=== PATIENT | female | born 1970 | race Caucasian/White ===

== ENCOUNTER 2016-10-06 18:47 | Emergency (ER) | payer OTHER ==
[~2016-10-06 18:47] MED LIST: ADVAIR 250/501 EA INH; ALBUTEROL0.09 MG/A2 INH; ALBUTEROL2.5 MG/0.5 INH; AMBIEN10 MG PO; AMITRIPTYLINE; AMITRIPTYLINE100 MG PO; ATIVAN; ATIVAN0.5 MG PO; AUGMENTIN 875 M1 TAB PO; CELEXA10 MG PO; CELEXA20 MG PO; CHLORZOXAZONE500 MG PO; CIPRO500 MG PO; CLARITIN10 MG PO; CLINDAMYCIN HC300 MG PO; COMBIVENT1 ARO IH; COREG12.5 MG PO; COREG3.125 MG PO; COZAAR100 MG PO; COZAAR25 MG; CYCLOBENZAPRINE10 MG PO; DAYPRO600 M1 PO; DELTASONE10 MG PO; DIOVAN HCT 25 M1 TA5 PO; DITROPAN XL10 MG PO; DOXYCYCLINE HY100 M3 PO; DOXYCYCLINE MO100 MG PO; FLEXERIL10 MG PO; HALDOL; HALDOL PO; HALDOL0.5 M1; HALDOL20 MG PO; HALDOL5 MG PO; HYDROCODONE BIT1 T11 PO; HYZAAR 12.5 MG-1 TAB PO; IMITREX50 MG PO; KEFLEX500 MG PO; LASIX20 MG PO; LEVAQUIN750 MG PO; MACROBID100 M1 PO; MEDROL DOSEPAK4 MG PO; MOTRIN800 MG PO; MUCINEX600 MG PO; NAPROSYN500 MG PO; NEURONTIN600 MG PO; NORFLEX100 MG PO; OMNICEF300 MG PO; PARAFON FORTE500 MG PO; PEN-V500 MG PO; PEPCID20 MG PO; POTASSIUM20 MEQ PO; PREDNISONE10 MG PO; PROAIR HFA0.09 MG/AC INH; RISPERDAL0.5 MG PO; ROBITUSSIN AC 110 ML PO; ROBITUSSIN-AC 160 ML PO; SAPHRIS10 MG SL; SEROQUEL100 MG PO; TEKTURNA150 MG PO; TESSALON PERLE200 MG PO; TORADOL10 MG PO; TRAMADOL HCL50 MG PO; TRAMADOL50 MG PO; VALTREX500 MG PO; VICODIN 5/500 505 MG PO; VOLTAREN50 M1 PO; XANAX XR2 MG PO; XANAX0.25 MG; ZANAX; ZANTAC 300300 MG PO; ZITHROMAX Z PA250 MG PO; ZITHROMAX500 MG PO; ZOFRAN ODT4 MG SL; ZOFRAN4 MG PO
[2016-10-06] MEDS ORDERED: PROAIR HFA8.5 GM INH (19:18)
[2016-10-06] MEDS ORDERED: MEDROL DOSEPAK4 MG PO (19:18)
[2016-10-08] MEDS ORDERED: HYCODAN/HYDROMET5 ML PO (13:02)
[2016-10-08] MEDS ORDERED: ROBITUSSIN DM 105 ML PO (16:04)
== END 2016-10-06 19:48 | disposition left against medical advice (07) ==
LOC: ED 18:47
DX: J44.1 Chronic obstructive pulmonary disease with (acute) exacerbation (principal); F17.210 Nicotine dependence, cigarettes, uncomplicated; F12.10 Cannabis abuse, uncomplicated; Z88.8 Allergy status to other drugs, medicaments and biological substances; Z79.899 Other long term (current) drug therapy

== ENCOUNTER 2017-01-06 07:30 | Emergency (ER) | payer MEDICAID ==
[~2017-01-06] VITALS: Ht 157.4 cm; Wt 81.6 kg
[~2017-01-06 07:30] MED LIST changes: +HYCODAN/HYDROMET5 ML PO; +PROAIR HFA8.5 GM INH; +ROBITUSSIN DM 105 ML PO
[2017-01-06 07:33] VITALS: BP 124/88
== END 2017-01-06 08:19 | disposition home or self-care (01) ==
LOC: ED 07:30
DX: Z01.419 Encounter for gynecological examination (general) (routine) without abnormal findings (principal); R10.2 Pelvic and perineal pain; F17.200 Nicotine dependence, unspecified, uncomplicated; E78.00 Pure hypercholesterolemia, unspecified; G89.29 Other chronic pain; Z98.890 Other specified postprocedural states; Z98.51 Tubal ligation status; Z79.899 Other long term (current) drug therapy; Z88.6 Allergy status to analgesic agent; Z88.8 Allergy status to other drugs, medicaments and biological substances

== ENCOUNTER 2017-01-31 20:21 | Inpatient (IN) | payer MEDICAID ==
[~2017-01-31] VITALS: Ht 157.5 cm; Wt 77.7 kg
[2017-01-31 20:22] VITALS: BP 122/76
[2017-01-31] MEDS ORDERED: PANTOPRAZOLE SO40 MG PO (20:35)
[2017-01-31 20:41] LABS: HEMATOCRIT 42.3 % (37.0-47.0); HEMOGLOBIN 14.7 g/dl (12.0-16.0); MEAN CELL VOLUME 93.8 fl (81.0-99.0); MEAN CORPUSCULAR HGB 32.6 pg (27.0-31.0); MEAN CORPUSCULAR HGB CONC 34.8 g/dl (33.0-37.0); MEAN PLATELET VOLUME 8.9 fl (9.6-12.3); PLATELET COUNT AUTOMATED 351 10*3/uL (130-400); RED BLOOD COUNT 4.51 10*6/uL (4.10-5.10)
[2017-01-31 20:52] LABS: INTERNATIONAL NORM RATIO 0.9 (2.0-3.5)
[2017-01-31 20:57] VITALS: BP 138/78
[2017-01-31 21:00] LABS: ALBUMIN 3.3 gm/dl (3.1-4.5); ALKALINE PHOSPHATASE 100 U/L (45-117); BILIRUBIN, TOTAL 0.2 mg/dl (0.2-1.0); BUN 11 mg/dl (7-24); CARBON DIOXIDE 24 mmol/L (21-32); CHLORIDE 99 mmol/L (98-107); EST GLOM FILT AFRICAN AMERICAN > 60 ml/min; GLUCOSE 117 mg/dL (65-99); MAGNESIUM 1.7 mg/dL (1.5-2.1); SGOT/AST 21 IU/L (3-35); SGPT/ALT 28 U/L (12-78); SODIUM 131 mmol/L (136-145); TOTAL PROTEIN 6.9 gm/dL (6.4-8.2)
[2017-01-31 21:01] LABS: TROPONIN I < 0.015 ng/ml (<0.045)
[2017-01-31 21:05] LABS: BASOPHIL # 0.1 10*3/uL (0-0.1); BASOPHILS 1 % (0-1); EOSINOPHIL # 0.4 10*3/uL (0-0.4); EOSINOPHILS 3 % (1-4); LYMPHOCYTE # 6.2 10*3/uL (1.3-4.4); MONOCYTE # 0.4 10*3/uL (0.1-1.0); NEUTROPHIL # 5.9 10*3/uL (2.3-7.9); NEUTROPHILS 45 % (47-73); PLATELET SUFFICIENCY NORMAL (NORMAL); TOTAL CELLS COUNTED 100 #CELLS
[2017-01-31 22:30] VITALS: BP 135/76
[2017-01-31] MEDS ORDERED: SEROPHENE50 MG PO (23:08)
[2017-01-31] MEDS ORDERED: SEROQUEL50 MG PO (23:09)
[2017-02-01] VITALS: BP 98/57
[2017-02-01 02:31] LABS: BILIRUBIN NEGATIVE (NEGATIVE); BLOOD NEGATIVE (NEGATIVE); CLARITY CLEAR (CLEAR); COLOR YELLOW (YELLOW); GLUCOSE NEGATIVE (NEGATIVE); KETONE NEGATIVE (NEGATIVE); LEUKO ESTERASE NEGATIVE (NEGATIVE); NITRITE NEGATIVE (NEGATIVE); PROTEIN NEGATIVE (NEGATIVE); SPECIFIC GRAVITY <= 1.005 (1.005-1.030); UROBILINOGEN 0.2 E.U./dl (0.2-1.0)
[2017-02-01 02:42] LABS: BACTERIA TRACE; RBC 0-2 rbc/hpf (0-2); URINE REFLEX COMMENT NO (NO); WBC 0-2 wbc/hpf (0-5)
[2017-02-01 06:45] LABS: HEMATOCRIT 43.4 % (37.0-47.0); MEAN CELL VOLUME 93.5 fl (81.0-99.0); MEAN CORPUSCULAR HGB 32.3 pg (27.0-31.0); MEAN CORPUSCULAR HGB CONC 34.6 g/dl (33.0-37.0); MEAN PLATELET VOLUME 8.9 fl (9.6-12.3); PLATELET COUNT AUTOMATED 368 10*3/uL (130-400); RED BLOOD COUNT 4.64 10*6/uL (4.10-5.10); RED CELL DISTRI WIDTH 14.1 % (0-14.5)
[2017-02-01 07:00] LABS: BUN 10 mg/dl (7-24); CARBON DIOXIDE 22 mmol/L (21-32); CHLORIDE 106 mmol/L (98-107); CHOLESTEROL 227 mg/dL (<200); EST GLOM FILT AFRICAN AMERICAN > 60 ml/min; FREE T4 0.92 ng/dl (0.76-1.46); GLUCOSE 96 mg/dL (65-99); HDL CHOLESTEROL 28 mg/dl (40-60); LDL CHOLESTEROL 121 mg/dL (9-159); MAGNESIUM 1.8 mg/dL (1.5-2.1); PHOSPHOROUS 3.9 mg/dL (2.5-4.9); POTASSIUM 4.4 mmol/L (3.5-5.1); SODIUM 134 mmol/L (136-145); TRIGLYCERIDES 389 mg/dl (<150); VLDL CHOLESTEROL 78 mg/dL (6-40)
[2017-02-01 07:13] LABS: HEMOGLOBIN A1c 5.6 % (4.8-5.6)
[2017-02-01 07:15] LABS: VITAMIN D, 25-HYDROXY 29.1 ng/mL (30-100)
[2017-02-01 07:16] LABS: FOLIC ACID 4.02 ng/mL (>5.38)
[2017-02-01 07:18] LABS: ATYPICAL LYMPHS 1 % (0-0); EOSINOPHIL # 0.4 10*3/uL (0-0.4); EOSINOPHILS 4 % (1-4); LYMPHOCYTE # 6.3 10*3/uL (1.3-4.4); MONOCYTE # 0.7 10*3/uL (0.1-1.0); NEUTROPHIL # 3.6 10*3/uL (2.3-7.9); NEUTROPHILS 33 % (47-73); PLATELET SUFFICIENCY NORMAL (NORMAL); TOTAL CELLS COUNTED 100 #CELLS
[2017-02-01 08:00] VITALS: BP 129/77
[2017-02-01] MEDS ORDERED: LATU40TA PO (10:07)
[2017-02-01] MEDS ORDERED: COZAAR100 MG PO (10:07)
[2017-02-01] MEDS ORDERED: DAILY VALUE1 EACH PO (10:07)
[2017-02-01] MEDS ORDERED: ZANAFLEX2 M1 PO (10:09)
[2017-02-01 16:00] VITALS: BP 127/80
[2017-02-01] MEDS ORDERED: ZITHROMAX TRI-500 M1 PO (16:58)
[2017-02-01] MEDS ORDERED: DUONEB 3 MG/3 ML3 M1 INH (16:58)
[2017-02-01] MEDS ORDERED: MUCINEX ER600 MG PO (16:58)
[2017-02-01] MEDS ORDERED: NATURE'S BLEND F1 MG PO (17:44)
[2017-02-01] MEDS ORDERED: D-1000 185 MG-11 TAB PO (17:44)
[2017-02-01] MEDS ORDERED: PRAVACHOL40 MG PO (19:15)
== END 2017-02-01 18:15 | disposition home or self-care (01) | DRG 202 ==
LOC: ED 20:21 → EDHOLD 21:28 → 5E 21:28
PROVIDERS: Emergency Medicine; Internal Medicine
PROC: 4A02XM4 Measurement of Cardiac Total Activity, External Approach (ICD-10-PCS; principal; 2017-02-01)
PROC: 3E073KZ Introduction of Other Diagnostic Substance into Coronary Artery, Percutaneous Approach (ICD-10-PCS; 2017-02-01)
DX: J20.9 Acute bronchitis, unspecified (principal); E87.1 Hypo-osmolality and hyponatremia; I10 Essential (primary) hypertension; R07.82 Intercostal pain; F32.9 Major depressive disorder, single episode, unspecified; Z88.8 Allergy status to other drugs, medicaments and biological substances; Z51.5 Encounter for palliative care; J45.909 Unspecified asthma, uncomplicated; G89.29 Other chronic pain; F41.9 Anxiety disorder, unspecified; D72.829 Elevated white blood cell count, unspecified; M25.512 Pain in left shoulder; M25.511 Pain in right shoulder; M54.5 Low back pain; E55.9 Vitamin D deficiency, unspecified; E78.00 Pure hypercholesterolemia, unspecified; E78.1 Pure hyperglyceridemia; Z66 Do not resuscitate; F17.210 Nicotine dependence, cigarettes, uncomplicated; D52.9 Folate deficiency anemia, unspecified

== ENCOUNTER 2017-06-21 16:15 | Emergency (ER) | payer OTHER ==
[~2017-06-21] VITALS: Ht 157.4 cm; Wt 78.9 kg
[~2017-06-21 16:15] MED LIST changes: +D-1000 185 MG-11 TAB PO; +DAILY VALUE1 EACH PO; +DUONEB 3 MG/3 ML3 M1 INH; +LATU40TA PO; +MUCINEX ER600 MG PO; +NATURE'S BLEND F1 MG PO; +PANTOPRAZOLE SO40 MG PO; +PRAVACHOL40 MG PO; +SEROPHENE50 MG PO; +SEROQUEL50 MG PO; +ZANAFLEX2 M1 PO; +ZITHROMAX TRI-500 M1 PO
[2017-06-21 16:22] VITALS: BP 139/83
[2017-06-21] MEDS ORDERED: VIBRAMYCIN100 MG PO (16:42)
== END 2017-06-21 16:51 | disposition home or self-care (01) ==
LOC: ED 16:15
DX: J45.901 Unspecified asthma with (acute) exacerbation (principal); F17.200 Nicotine dependence, unspecified, uncomplicated; Z98.51 Tubal ligation status; Z98.890 Other specified postprocedural states; Z79.899 Other long term (current) drug therapy; Z88.8 Allergy status to other drugs, medicaments and biological substances

== ENCOUNTER 2017-06-22 19:44 | Inpatient (IN) | payer OTHER ==
[~2017-06-22] VITALS: Ht 157.4 cm; Wt 78.9 kg
[~2017-06-22 19:44] MED LIST changes: +VIBRAMYCIN100 MG PO
[2017-06-22 19:53] VITALS: BP 159/81
[2017-06-22 20:26] LABS: HEMATOCRIT 37.6 % (37.0-47.0); HEMOGLOBIN 13.1 g/dl (12.0-16.0); MEAN CELL VOLUME 95.2 fl (81.0-99.0); MEAN CORPUSCULAR HGB 33.2 pg (27.0-31.0); MEAN CORPUSCULAR HGB CONC 34.8 g/dl (33.0-37.0); MEAN PLATELET VOLUME 8.7 fl (9.6-12.3); PLATELET COUNT AUTOMATED 344 10*3/uL (130-400); RED BLOOD COUNT 3.95 10*6/uL (4.10-5.10); RED CELL DISTRI WIDTH 13.8 % (0-14.5)
[2017-06-22 20:41] LABS: ALBUMIN 3.4 gm/dl (3.1-4.5); ALKALINE PHOSPHATASE 119 U/L (45-117); BUN 10 mg/dl (7-24); CHLORIDE 98 mmol/L (98-107); CREATININE 1.02 mg/dL (0.55-1.02); POTASSIUM 3.8 mmol/L (3.5-5.1); SGOT/AST 51 IU/L (3-35); SGPT/ALT 68 U/L (12-78); SODIUM 131 mmol/L (136-145); TOTAL PROTEIN 6.9 gm/dL (6.4-8.2)
[2017-06-22 20:46] LABS: TOTAL CELLS COUNTED 100 #CELLS
[2017-06-22 20:47] LABS: PLATELET SUFFICIENCY NORMAL (NORMAL); POLYCHROMASIA SLIGHT
[2017-06-22 22:31] VITALS: BP 140/87
[2017-06-22 23:00] VITALS: BP 145/90
--- NOTE | 2017-06-22 23:00 | NUR ---
A 47yr femaile admitted to [facility], under the services of RUBENS Mayen DO with a diagnosis of bronchitis with angioedema. Chief complaint is swelling of face after two doses of Doxycycline. Patient arrived via stretcher from ER. Monitor applied. Initial assessment completed. Vital signs taken and recorded. Orders entered electronically by Dr Quigley. See assessment for past medical history, medications and allergies. Patient and/or family oriented to unit. [facility] visitation policy reviewed. Clothing/patient valuable form completed. HIEU SORENSEN L
--- NOTE | 2017-06-22 23:26 | NUR ---
DR JENKINS NOTIFIED OF CRITICAL VALUE LACTIC ACID 2.7 WHICH IS TRENDING DOWN.
[2017-06-23] VITALS: BP 142/86
--- NOTE | 2017-06-23 00:20 | NUR ---
FLUID BOLUS INFUSING WELL. RESTING IN BED WATCHING TV. FACE REMAINS FLUSHED. DENIES ANY SWELLING OF TONGUE OR LIPS. PULSE OX 96% ON RA. RESPIRATIONS EASY.
--- NOTE | 2017-06-23 01:46 | NUR ---
0035 MEDICATED WITH NORCO PO FOR C/O'S CHEST DISCOMFORT. WILL MONITOR. [address] JENKINS NOTIFIED. EARLIER PAIN MED EFFECTIVE, RESTING IN BED WITH EYES CLOSED. APPEARS TO BE SLEEPING.
--- NOTE | 2017-06-23 03:51 | NUR ---
MEDS REVIEWED WITH PT. MED REC UPDATED. UNABLE TO CALL HERSSHANTANU FARRIS DUE TO IT BEING AFTER HOURS.
[2017-06-23 04:00] VITALS: BP 103/48
--- NOTE | 2017-06-23 04:07 | NUR ---
RESTING IN BED WITH EYES CLOSED. APPEARS TO BE SLEEPING.
[2017-06-23 05:51] LABS: BASO % 0.1 % (0.0-1.0); HEMATOCRIT 36.7 % (37.0-47.0); HEMOGLOBIN 12.8 g/dl (12.0-16.0); LYMPH # 2.2 10*3/uL (1.3-4.4); MEAN CELL VOLUME 96.6 fl (81.0-99.0); MEAN CORPUSCULAR HGB 33.7 pg (27.0-31.0); MEAN CORPUSCULAR HGB CONC 34.9 g/dl (33.0-37.0); MEAN PLATELET VOLUME 8.9 fl (9.6-12.3); MONO # 0.5 10*3/uL (0.1-1.0); NEUT # 19.5 10*3/uL (2.3-7.9); NEUT % 86.7 % (47.0-73.0); PLATELET COUNT AUTOMATED 332 10*3/uL (130-400); RED CELL DISTRI WIDTH 14.1 % (0-14.5); WHITE BLOOD COUNT 22.4 10*3/uL (4.8-10.8)
[2017-06-23 06:08] LABS: ALBUMIN 3.1 gm/dl (3.1-4.5); ALKALINE PHOSPHATASE 104 U/L (45-117); BUN 9 mg/dl (7-24); CHLORIDE 107 mmol/L (98-107); CHOLESTEROL 149 mg/dL (<200); CREATININE 0.97 mg/dL (0.55-1.02); FREE T4 0.78 ng/dl (0.76-1.46); HDL CHOLESTEROL 45 mg/dl (40-60); LDL CHOLESTEROL 69 mg/dL (9-159); PHOSPHOROUS 2.6 mg/dL (2.5-4.9); SGOT/AST 57 IU/L (3-35); SGPT/ALT 75 U/L (12-78); SODIUM 136 mmol/L (136-145); TOTAL PROTEIN 6.4 gm/dL (6.4-8.2); TRIGLYCERIDES 175 mg/dl (<150); VLDL CHOLESTEROL 35 mg/dL (6-40)
[2017-06-23 06:12] LABS: THYROID STIM HORMONE (HS) 0.481 uIU/ml (0.358-4.75)
--- NOTE | 2017-06-23 06:15 | NUR ---
SLEPT WELL THIS SHIFT. REMAINS WITHOUT C/O'S. IV FLUIDS CONT. NO DISTRESS NOTED. CONDITION GUARDED.
[2017-06-23 06:20] LABS: POTASSIUM 4.9 mmol/L (3.5-5.1)
[2017-06-23 06:27] LABS: ACT PARTIAL THROMBO TIME 22.4 SECONDS (20.8-31.5)
--- NOTE | 2017-06-23 07:06 | NUR ---
0635 NORCO PO FOR C/O'S CHEST DISCOMFORT. EFFECTIVE.
--- NOTE | 2017-06-23 07:53 | NUR ---
DR FRANCIS IN TO SEE PT. ORDERED FOR FLU AND PNEUMONIA VACCINES TO BE GIVEN ON DISCHARGE.
[2017-06-23 08:00] VITALS: BP 133/75
--- NOTE | 2017-06-23 08:43 | NUR ---
PT RESTING. RESP EASY. PT STATES NORCO EFFECTIVE FOR EARLIER CHEST PAIN.
--- NOTE | 2017-06-23 09:45 | NUR ---
PT STATES SHE IS SIGNING OUT AMA DUE TO A FAMILY EMERGENCY.
--- NOTE | 2017-06-23 09:55 | NUR ---
Patient signed out AMA. Patient encouraged to stay and advised of possible consequences of premature discharge. Dr. Carballo and metal furniture assembly supervisor notified. Patient instructed what to do regarding care post-departure from the hospital; emergency phone numbers provided. A cab was called for pt and then pt ambulated out of the unit to meet the cab.. DOMINICK SCHMITZ
== END 2017-06-23 09:55 | disposition left against medical advice (07) | DRG 871 ==
LOC: ED 19:44 → EDHOLD 21:58 → ICCU 22:07
PROVIDERS: Emergency Medicine Emergency Medical Services; Hospitalist; ADMIT Internal Medicine
DX: A41.9 Sepsis, unspecified organism (principal); J18.9 Pneumonia, unspecified organism; E87.2 Acidosis; T78.3XXA Angioneurotic edema, initial encounter; R65.20 Severe sepsis without septic shock; F17.200 Nicotine dependence, unspecified, uncomplicated; F32.9 Major depressive disorder, single episode, unspecified; F41.9 Anxiety disorder, unspecified; J45.909 Unspecified asthma, uncomplicated; G89.29 Other chronic pain; I10 Essential (primary) hypertension; J20.9 Acute bronchitis, unspecified; E55.9 Vitamin D deficiency, unspecified; E53.8 Deficiency of other specified B group vitamins; Z53.21 Procedure and treatment not carried out due to patient leaving prior to being seen by health care provider; Z88.8 Allergy status to other drugs, medicaments and biological substances; Z79.899 Other long term (current) drug therapy; Z98.891 History of uterine scar from previous surgery; Z98.51 Tubal ligation status; Z83.3 Family history of diabetes mellitus; Z82.49 Family history of ischemic heart disease and other diseases of the circulatory system; Z88.1 Allergy status to other antibiotic agents; Z71.6 Tobacco abuse counseling

== ENCOUNTER 2017-06-26 15:22 | Emergency (ER) | payer OTHER ==
[~2017-06-26] VITALS: Wt 78.9 kg
[2017-06-26 15:28] VITALS: BP 148/80
== END 2017-06-26 15:48 | disposition left against medical advice (07) ==
LOC: ED 15:22
DX: R06.00 Dyspnea, unspecified (principal); F17.210 Nicotine dependence, cigarettes, uncomplicated; F10.10 Alcohol abuse, uncomplicated; Z79.899 Other long term (current) drug therapy; Z88.8 Allergy status to other drugs, medicaments and biological substances; Z98.51 Tubal ligation status

== ENCOUNTER 2017-07-14 18:55 | Emergency (ER) | payer OTHER ==
[~2017-07-14] VITALS: Ht 157.4 cm; Wt 78.9 kg
[2017-07-14 19:30] LABS: HEMATOCRIT 39.8 % (37.0-47.0); HEMOGLOBIN 13.8 g/dl (12.0-16.0); MEAN CELL VOLUME 94.5 fl (81.0-99.0); MEAN CORPUSCULAR HGB 32.8 pg (27.0-31.0); MEAN CORPUSCULAR HGB CONC 34.7 g/dl (33.0-37.0); MEAN PLATELET VOLUME 8.9 fl (9.6-12.3); PLATELET COUNT AUTOMATED 356 10*3/uL (130-400); RED BLOOD COUNT 4.21 10*6/uL (4.10-5.10); RED CELL DISTRI WIDTH 13.8 % (0-14.5); WHITE BLOOD COUNT 13.3 10*3/uL (4.8-10.8)
[2017-07-14 19:40] LABS: ACT PARTIAL THROMBO TIME 25.6 SECONDS (20.8-31.5)
[2017-07-14 19:41] VITALS: BP 138/87
[2017-07-14 19:49] LABS: ATYPICAL LYMPHS 2 % (0-0); BASOPHILS 1 % (0-1); TOTAL CELLS COUNTED 100 #CELLS
[2017-07-14 19:50] LABS: PLATELET SUFFICIENCY NORMAL (NORMAL)
[2017-07-14 19:52] LABS: ALBUMIN 3.4 gm/dl (3.1-4.5); BUN 7 mg/dl (7-24); CHLORIDE 98 mmol/L (98-107); CREATININE 1.02 mg/dL (0.55-1.02); POTASSIUM 3.6 mmol/L (3.5-5.1); SGOT/AST 30 IU/L (3-35); SGPT/ALT 34 U/L (12-78); SODIUM 131 mmol/L (136-145); TOTAL PROTEIN 7.3 gm/dL (6.4-8.2)
[2017-07-14 19:54] LABS: ALKALINE PHOSPHATASE 131 U/L (45-117)
[2017-07-14 19:55] LABS: BETA-HCG, QUANT < 1.0 mIU/mL (1-3); TROPONIN I < 0.015 ng/ml (<0.045)
[2017-07-14] MEDS ORDERED: PREDNISONE50 MG PO (20:10)
[2017-07-14] MEDS ORDERED: LEVAQUIN750 M1 PO (20:10)
== END 2017-07-14 20:18 | disposition home or self-care (01) ==
LOC: ED 18:55
PROVIDERS: Student in an Organized Health Care Education/Training Program
DX: J44.1 Chronic obstructive pulmonary disease with (acute) exacerbation (principal); J45.901 Unspecified asthma with (acute) exacerbation; G89.29 Other chronic pain; I10 Essential (primary) hypertension; F32.9 Major depressive disorder, single episode, unspecified; E78.00 Pure hypercholesterolemia, unspecified; F17.200 Nicotine dependence, unspecified, uncomplicated; F10.10 Alcohol abuse, uncomplicated; Z88.8 Allergy status to other drugs, medicaments and biological substances; Z79.899 Other long term (current) drug therapy

== ENCOUNTER 2017-08-04 20:27 | Inpatient (IN) | payer OTHER ==
[~2017-08-04] VITALS: Ht 157.4 cm; Wt 84.4 kg
--- NOTE | ~2017-08-04 | PR ---
[place], [place] PROGRESS NOTE NAME: ESTEFANIA CHONG UNIT #: [id number] ROOM: 403 DOCTOR: YUSUF KAY DO BIRTHDATE: [birth year] DOS: 08/08/2017 SUBJECTIVE: The patient was seen and examined at bedside. The patient was sitting upright in bed in no acute distress. The patient reports that her breathing is improved and that she has no new complaints at this time, continues to have some mild productive cough with some wheezing. However, she does feel that she is stable and ready for discharge. OBJECTIVE: VITAL SIGNS: Temperature 98.4, pulse is 78, respirations 20, blood pressure 153/78, pulse ox is 94% on 2 liters nasal cannula. LABS: No labs were drawn. Micro: One of the bronch washings is positive for heavy yeast. Blood cultures remain negative. Flu swab remains negative. PHYSICAL EXAMINATION: GENERAL APPEARANCE: Alert, awake and oriented x 3, no acute distress. HEENT: Eyes are clear. Nares are patent. Mucous membranes are moist. NECK: Supple, nontender. CHEST: Mild expiratory wheezing. No rales or rhonchi. CARDIOVASCULAR: Regular rate and rhythm, no murmurs, gallops or rubs. ABDOMEN: Soft, nontender with positive bowel signs. EXTREMITIES: Clear of edema, erythema, cyanosis and clubbing. ASSESSMENT: 1. Yeast infection of the upper airway. 2. Acute exacerbation of chronic obstructive pulmonary disease with bronchial asthma. 3. Acute respiratory failure. TREATMENT PLAN: The patient is medically cleared by pulmonary standpoint to be discharged today. Continue with Diflucan, to continue with the steroid taper, antibiotics and an albuterol inhaler as needed for wheezes. The patient can follow up with Dr. Francis outpatient as needed. YUSUF KAY DO [place], [place] PROGRESS NOTE NAME: ESTEFANIA CHONG UNIT #: [id number] ROOM: 403 DOCTOR: YUSUF KAY DO BIRTHDATE: [birth year] RALPH FRANCIS MD CM:JOHN [phone] YUSUF KAY DO 08/08/172200 interface
--- NOTE | ~2017-08-04 | CON ---
[place], [place] REPORT OF CONSULTATION NAME: ESTEFANIA CHONG [facility] #: [id number] UNIT #: [id number] ROOM: 403 DOCTOR: RALPH SCHAFER MD BIRTHDATE: [birth year] DOS: 08/06/2017 PULMONARY CONSULTATION, EVALUATION, AND MANAGEMENT CONSULTATION REQUESTED BY: Hospitalist service. REASON FOR CONSULTATION: To assess the patient for current ongoing acute severe respiratory symptom, exacerbation of COPD, or bronchial asthma. HISTORY OF PRESENT ILLNESS: This is a 47-year-old white female who has been admitted to the hospitalist service on 08/04/2017. She presented to the hospital as she developed symptoms of progressive increased shortness of breath with chest congestion. She has been noted ill for about a month. The patient has been taking her prescription medication and noted no improvement in the respiratory symptoms. The patient was complaining of symptoms of chest pain in the rib with excessive cough. She had not been able to expectorate any sputum. The cough has been noted continuous. The patient denies any symptoms of hemoptysis, but noted significant chest tightness. REVIEW OF SYSTEMS: CONSTITUTIONAL SYMPTOMS: Fatigue and tiredness reported. Denies symptoms of fever or chills. EYES: Denies any burning, redness, or tenderness. EARS, NOSE, AND THROAT SYMPTOMS: No sore throat, hoarseness, or otalgia. Denies any earache or discharge. CARDIOVASCULAR: Denies anginal pain, edema, or pain of the lower extremities. GASTROINTESTINAL: Denies dysphagia, nausea, vomiting, diarrhea, abdominal pain, hematemesis, melena, hematochezia, dysphagia, or abnormal weight loss history. GENITOURINARY: Denies any flank pain, suprapubic pain, hematuria, urinary incontinence, or hesitancy. SKIN: Denies any lesions or rashes or ulcers. MUSCULOSKELETAL: No acute joint pain or deformities. CENTRAL NERVOUS SYSTEM: Denies dizziness, headache, diplopia, or syncopal episodes. Remaining systems of the patient were reviewed and they were noted negative. PAST MEDICAL HISTORY: The patient was known with: 1. History of depression. 2. Chronic pain. 3. Essential hypertension. 4. History of nicotine dependence. 5. Paranoid schizophrenia. 6. Past history of pneumonia was also reported. 7. COPD. SOCIAL HISTORY: The patient stated that she is single, has four children. Tobacco use noted since a teenager. The patient continued to smoke 1 pack of cigarettes per day. Denies history of alcohol use or any illicit drugs use. [place], [place] REPORT OF CONSULTATION [id number] #: [id number] ROOM: 403 DOCTOR: RALPH SCHAFER MD BIRTHDATE: [birth year] PAST SURGICAL HISTORY: Noted for: 1. Endometrial ablation treatment. 2. . FAMILY HISTORY: Both parents have been . Father from suicide and mother was murdered. HOME MEDICATIONS: Reported as use of Xanax, Tessalon Perles, Coreg, cetirizine, doxepin, gabapentin, Haldol, loratadine, losartan, Latuda, Singulair, omeprazole, Protonix, pravastatin, and trazodone. DRUG ALLERGIES: REPORTED ALLERGY TO: 1. DOXYCYCLINE. 2. NORVASC. PHYSICAL EXAMINATION: GENERAL: This is a 47-year-old female patient who has been currently resting, sitting on the bed, without any distress. Height of 5 feet 2 inches, weight of 186 pounds, BMI 34. VITAL SIGNS: Normal temperature noted since admission, respiratory rate ranged between 18-20, heart rate of 78-81, blood pressure 114/55-109/63. HEENT: Piercing of the lips and the tongue was noted with metal piercing device. Head was atraumatic. Eyes nonicterus. Decreased posterior pharyngeal space, high tongue base, crowding of soft tissue structures. NECK: Supple. Oral mucosa moist. CARDIOVASCULAR: S1, S2 audible. LUNGS: Showed diffuse reduction in the breath sounds with severe expiratory wheezing in the lungs bilaterally. ABDOMEN: Noted with moderate obesity. Bowel sounds present. EXTREMITIES: Noted without any edema, clubbing, or cyanosis. SKIN: Visible skin, no lesions or rashes. MUSCULOSKELETAL: No deformities. CENTRAL NERVOUS SYSTEM: Intact for the patient. There were no gross focal deficits. Cranial nerves 2-12 intact. LABORATORY DATA: CBC of the patient on admission, 08/04/2017, WBC count 13.8, hemoglobin, hematocrit, and platelet count normal. Lactic acid 2.9 on admission, on followup was 2.5. The CMP of the patient on 08/04/2017, BUN normal, creatinine 1.09. sodium 122, chloride of 89, carbon dioxide 20. CBC of the patient that was done this morning, WBC count elevated at 26.3, hemoglobin 11.8, hematocrit 35.1, platelet count was normal. The renal function panel, BUN normal, creatinine was normal, sodium 136, potassium was normal. The blood culture from 08/04/2017 showed no bacterial growth. RADIOLOGY DATA: The review of the radiology data for the patient was noted without any acute pulmonary filtration, that was noted on today's chest x-ray or from admission one-view of 08/04/2017 that was reviewed. IMPRESSION: 1. The patient who has been currently admitted to the hospital with noted [place], [place] REPORT OF CONSULTATION NAME: ESTEFANIA CHONG UNIT #: [id number] ROOM: 403 DOCTOR: RALPH SCHAFER MD BIRTHDATE: [birth year] persistent acute severe cough with ongoing acute exacerbation of chronic obstructive pulmonary disease, inability to expectorate sputum. 2. Leukocytosis, most likely related to the steroid use as well. 3. History of chronic long-term nicotine dependence as well. 4. The patient with chronic obesity as well. 5. Multiple psychiatric medication use for the patient with hyponatremia on admission, possibility of volume depletion versus syndrome of inappropriate antidiuretic hormone has been considered as well. However, the sodium level has been corrected to normal at this time in the last 2 days. 6. Chronic heavy nicotine dependence. PLAN OF MANAGEMENT: Therapeutic bronchoscopy was assessed and planned to be done tomorrow. Risks and benefits of the procedure have been discussed. Continuation of the current home medication, which has been ordered for the patient including continuing Solu-Medrol at the current dose and DuoNeb every 4 hours. Continue current antibiotic. No changes need to be made. Monitor leukocytosis. Reduction of corticosteroids based on the progression and reduction of the respiratory symptoms. Additional treatment changes will be made based on further assessment. RALPH FRANCIS MD CM:CONSTR:REPORT OF CONSULTATION 1402 08/07/17 0046 interface
--- NOTE | ~2017-08-04 | PROC NOTE ---
[place], [place] PROCEDURE NOTE NAME: ESTEFANIA CHONG UNIT #: [id number] ROOM: 403 DOCTOR: PENNY NG MD,RALPH BIRTHDATE: [birth year] DOS: 08/07/2017 PREOPERATIVE DIAGNOSES: The patient was noted with severe cough, chronic and currently ____ nonproductive with wheezing. This is a therapeutic bronchoscopy. POSTOPERATIVE DIAGNOSES: Severe impaction with mucus plugs, clear endobronchial tree, bilaterally finding of acute tracheobronchitis. There were no endobronchial lesions. PROCEDURE DESCRIPTION: Informed consent obtained for the patient. The patient was brought to the OR and placed in supine position. Conscious sedation administered by Anesthesia Department. After achieving proper sedation, airway was introduced into the mouth. Bronchoscope advanced to the airway into the laryngeal area. Epiglottis and vocal cords were seen. Bronchoscope was advanced to vocal cord and tracheal lumen. In the tracheal lumen, the patient was noted with moderate amount of very thick mucus secretion with small secretion mixture suctioned at lani level. Right upper, right middle, right lower, left upper, lingular lobe bronchi were all examined. They were impacted with very thick plugs of the mucus. All secretions suctioned off and cleared with normal saline wash, sent for culture. Procedure well tolerated by the patient without difficulty. Postoperative finding will be discussed with the patient once the patient recovers from the effects of acute sedation. RALPH FRANCIS MD CM:PROCNOTE:PROCEDURE NOTE [phone] RALPH NG MD
--- NOTE | ~2017-08-04 | PR ---
[place], [place] PROGRESS NOTE NAME: ESTEFANIA CHONG UNIT #: [id number] ROOM: 403 DOCTOR: YUSUF KAY DO BIRTHDATE: [birth year] DOS: 08/07/2017 SUBJECTIVE: The patient is seen and examined prior to bronchoscopy. The patient is in no acute distress. Continues to have shortness of breath, wheezing and sputum production. No other complaints at this time. OBJECTIVE: VITAL SIGNS: Temperature 97.5, pulse is 60, respirations 20, blood pressure 161/96, pulse ox is 91% on room air. LABS: White count 22.7, hemoglobin 11.5, hematocrit 34.7, platelets count 307. Chemistries were normal except for a mild elevation of glucose 134, calcium 8.8. T bilirubin 0.01. AST and ALT were normal. Alk phos was normal. Albumin 3.0. Blood cultures remain negative. Flu swab was negative. Chest x-ray from yesterday morning shows normal AP chest. GENERAL APPEARANCE: The patient is alert, awake and oriented x 3, no acute distress. HEENT: Eyes are clear. No injection. Nares are patent. Mucous membranes are moist. NECK: Supple, nontender. CARDIOVASCULAR: Regular rate and rhythm, no murmurs, gallops or rubs. PULMONARY: Expiratory wheezing with mild crackles appreciated bilaterally. ABDOMEN: Soft, nontender with positive bowel sounds. EXTREMITIES: Lower extremities, no edema, cyanosis, clubbing or erythema. NEUROLOGIC: Negative for focal deficits. ASSESSMENT: 1. Chronic obstructive pulmonary disease exacerbation with acute severe cough. 2. Leukocytosis. 3. Nicotine dependence. 4. Obesity. 5. Hyponatremia. PLAN: The patient to be bronch this morning. We will await bronch washings for cultures and sensitivities. Continue with Mucinex, Singulair, DuoNebs, azithromycin, Rocephin and Solu-Medrol 40 t.i.d. We will continue to follow the patient. YUSUF KAY DO [place], [place] PROGRESS NOTE NAME: ESTEFANIA CHONG UNIT #: [id number] ROOM: 403 DOCTOR: YUSUF KAY DO BIRTHDATE: [birth year] RALPH FRANCIS MD CM:JOHN [phone] YUSUF KAY DO 08/07/17 105 interface
--- NOTE | ~2017-08-04 | PR ---
[place], [place] PROGRESS NOTE NAME: [id number] UNIT #: [id number] ROOM: 403 DOCTOR: PENNY NG MD,RALPH BIRTHDATE: [birth year] DOS: 08/08/2017 The patient was independently seen and examined in [id number] encounter, history was confirmed and labs were reviewed. The assessment was personally completed. Any changes in the medical management were personally made and recommended for today's visit. The note done by the medical lab tech instructor was approved. She had bronchoscopy done yesterday with significant reduction in respiratory symptoms. The coughing and shortness breath symptoms have been improving. She was also noted with significant oral thrush with bronchoscopy yesterday and started on Diflucan 100 mg p.o. daily. PHYSICAL EXAMINATION: VITAL SIGNS: Reviewed and noted essentially normal except systolic pressure mildly elevated at 153. The pulse oxygen saturation was noted as 94% on 2-liter nasal cannula. LUNGS: Noted with general reduction of the breath sounds with scattered occasional expiratory wheezing. ABDOMEN: Soft and obese. LABORATORY DATA: The culture of the bronchial washing was noted with heavy growth of yeast, preliminary. Final culture results are pending. IMPRESSION: The patient with acute exacerbation of chronic obstructive pulmonary disease, acute tracheobronchitis. Reduction of respiratory symptoms has been noted. Oral thrush was also noted and chronic obesity as well and other medical illnesses with nicotine dependence. PLAN OF TREATMENT: The patient will be recommended for potential discharge. Tapering dose of prednisone, oral antibiotics, use of appropriate medication for COPD in the form of inhalers. Outpatient followup if agreed by the patient. Abstinence from tobacco use. RALPH FRANCIS MD CM:PNTRANS [phone] RALPH NG MD 08/08/171850 interface
--- NOTE | ~2017-08-04 | PR ---
[place], [place] PROGRESS NOTE NAME: ESTEFANIA CHONG UNIT #: [id number] ROOM: 403 DOCTOR: YUSUF KAY DO BIRTHDATE: [birth year] DOS: 08/09/2017 SUBJECTIVE: The patient was seen and examined at bedside. The patient was asleep, in no acute distress at the time of interview. The patient was awakened easily, reports that she continues to have some mild shortness of breath with ambulation, however, feels that she has stabilized and feels like she is ready to go home today. The patient was reassessed for home oxygen both yesterday and today and patient qualified for home oxygen and that is getting arranged for her at the time of discharge. No other complaints as of today. OBJECTIVE: VITAL SIGNS: Temperature 97.6, pulse is 51, respirations 20, blood pressure 196/91, pulse ox 97% of 1.5 liters nasal cannula. LABORATORY DATA: Chemistries: Broncho washings were positive for heavy yeast. IMPRESSION: 1. Acute on chronic obstructive pulmonary disease exacerbation. 2. Upper respiratory yeast infection. 3. Acute on chronic respiratory failure. TREATMENT PLAN: The patient is medically stable from a pulmonary standpoint for discharge home. The patient will require 2 liters nasal cannula at all times for the foreseeable future due to her chronic respiratory failure with hypoxia. Recommend the patient continue with Diflucan, steroid taper and Levaquin with albuterol p.r.n. for shortness of breath upon discharge and follow up with Dr. Francis as outpatient in a couple of weeks. YUSUF KAY, DO RALPH FRANCIS MD CM:PNADONIS [phone] YUSUF KAY DO 08/10/17 1452 interface
--- NOTE | ~2017-08-04 | PR ---
[place], [place] PROGRESS NOTE NAME: ESTEFANIA CHONG UNIT #: [id number] ROOM: 403 DOCTOR: RALPH SCHAFER MD BIRTHDATE: [birth year] DOS: 08/07/2017 SUBJECTIVE: The patient was independently seen and examined in [id number] encounter today. The history was confirmed. Physical examination performed. All the labs were reviewed. The patient's assessment, management personally done for the patient today's visit, done by the new medical imaging specialist, was approved. She continued to have similar symptoms of severe cough. The patient had wheezing without any changes from yesterday. Denies any symptoms of hemoptysis. The patient denies symptoms of edema or pain of the lower extremities. Denies any headache or diplopia. OBJECTIVE: VITAL SIGNS: Review of the vital sign was done shows essentially normal vital signs. The pulse oxygen saturation was recorded as 97% to 90% on room air. LUNGS: Noted with decreased breath sounds in the lungs bilaterally with expiratory wheezing. There were no crackles. ABDOMEN: Soft and obese. EXTREMITIES: Without any edema. Chronic obesity. SKIN: No lesion or rash. MUSCULOSKELETAL: No deformities. CENTRAL NERVOUS SYSTEM: Intact. LABORATORY DATA: CMP this morning, , albumin 3.0. Remaining CMP was normal. The CBC this morning: WBC count still elevated 22.7, hemoglobin 11.5, hematocrit 34.7, platelet count was normal. IMPRESSION: Persistent respiratory symptoms, which has been noted at this time with severe cough, wheezing, acute exacerbation of chronic obstructive pulmonary disease/bronchial asthma. The chest x-ray yesterday was noted without any acute pulmonary infiltration. The patient will be undergoing therapeutic bronchoscopy. Any modification treatment with the patient if necessary will be done after that. All other plan of treatment, the patient had previously outlined yesterday, will be continued without any changes. [place], [place] PROGRESS NOTE NAME: ESTEFANIA CHONG UNIT #: [id number] ROOM: 403 DOCTOR: RALPH SCHAFER MD BIRTHDATE: [birth year] RALPH FRANCIS MD CM:PNTRANS [phone] RALPH NG MD 08/08/17 1107 interface
--- NOTE | ~2017-08-04 | PR ---
[place], [place] PROGRESS NOTE NAME: [id number] UN[facility] #: [id number] ROOM: 403 DOCTOR: PENNY NG MD,RALPH BIRTHDATE: [birth year] DOS: 08/09/2017 SUBJECTIVE: The patient has been seen and examined in [id number] encounter, history was confirmed. The physical examination was performed. All the available labs were reviewed. Assessment and management of the patient was personally done as well. The note done by the medical imaging technologist was approved. The patient has been showing progressive resolution and improvement in respiratory symptom. The shortness breath, cough, wheezing all resolving. She will be discharged home today. Oxygen assessment was completed. She was noted with hypoxia. PLAN OF TREATMENT: The patient with ambulation, requires 2 liters nasal cannula oxygen supplementation to improve the hypoxia. The oxygen supplementation will be arranged. Abstinence from tobacco use was encouraged. She will be getting oral Diflucan for oral thrush management and tapering dose of prednisone as well as antibiotics and other inhalers for the medical management of chronic obstructive pulmonary disease. RALPH FRANCIS MD CM:PNADONIS [phone] RAPLH NG MD 08/09/172150 interface
[2017-08-04 20:27] VITALS: BP 128/74
[~2017-08-04 20:27] MED LIST changes: +LEVAQUIN750 M1 PO; +PREDNISONE50 MG PO
[2017-08-04 21:01] LABS: BASO # 0.1 10*3/uL (0.0-0.1); BASO % 0.6 % (0.0-1.0); EOS # 0.1 10*3/uL (0.0-0.4); EOS % 0.9 % (1.0-4.0); HEMATOCRIT 37.8 % (37.0-47.0); HEMOGLOBIN 13.1 g/dl (12.0-16.0); LYMPH # 2.1 10*3/uL (1.3-4.4); LYMPH % 14.8 % (27.0-41.0); MEAN CELL VOLUME 95.7 fl (81.0-99.0); MEAN CORPUSCULAR HGB 33.2 pg (27.0-31.0); MEAN CORPUSCULAR HGB CONC 34.7 g/dl (33.0-37.0); MEAN PLATELET VOLUME 8.8 fl (9.6-12.3); MONO # 0.6 10*3/uL (0.1-1.0); MONO % 4.6 % (3.0-9.0); NEUT # 10.9 10*3/uL (2.3-7.9); NEUT % 78.5 % (47.0-73.0); PLATELET COUNT AUTOMATED 272 10*3/uL (130-400); RED BLOOD COUNT 3.95 10*6/uL (4.10-5.10); RED CELL DISTRI WIDTH 13.3 % (0-14.5); WHITE BLOOD COUNT 13.8 10*3/uL (4.8-10.8)
[2017-08-04 21:23] LABS: ALBUMIN 3.4 gm/dl (3.1-4.5); ALKALINE PHOSPHATASE 128 U/L (45-117); BUN 7 mg/dl (7-24); CHLORIDE 89 mmol/L (98-107); CREATININE 1.09 mg/dL (0.55-1.02); POTASSIUM 3.9 mmol/L (3.5-5.1); SGOT/AST 28 IU/L (3-35); SGPT/ALT 42 U/L (12-78); SODIUM 122 mmol/L (136-145); TOTAL PROTEIN 6.7 gm/dL (6.4-8.2)
[2017-08-04 21:24] LABS: TROPONIN I < 0.015 ng/ml (<0.045)
[2017-08-04 21:30] VITALS: BP 120/78
[2017-08-04 22:40] VITALS: BP 148/93
[2017-08-04] MEDS ORDERED: HALDOL PO (22:47)
[2017-08-04] MEDS ORDERED: CETIRIZINE10 MG PO (22:48)
[2017-08-04] MEDS ORDERED: SINEQUAN25 MG PO (22:53)
[2017-08-04] MEDS ORDERED: CARVEDILOL25 MG PO (22:54)
[2017-08-04] MEDS ORDERED: SINGULAIR10 M1 PO (22:54)
[2017-08-04] MEDS ORDERED: NEURONTIN300 MG PO (22:55)
[2017-08-04] MEDS ORDERED: TESSALON PERLE100 MG PO (22:56)
[2017-08-04] MEDS ORDERED: OMEPRAZOLE20 M2 PO (22:57)
[2017-08-04] MEDS ORDERED: LORADAMED10 MG PO (22:58)
[2017-08-04] MEDS ORDERED: LATU80TA PO (22:58)
[2017-08-04] MEDS ORDERED: PANTOPRAZOLE SO40 MG PO (22:58)
[2017-08-04 23:14] LABS: BILIRUBIN NEGATIVE (NEGATIVE); BLOOD NEGATIVE (NEGATIVE); CLARITY CLEAR (CLEAR); COLOR YELLOW (YELLOW); GLUCOSE NEGATIVE (NEGATIVE); KETONE NEGATIVE (NEGATIVE); LEUKO ESTERASE NEGATIVE (NEGATIVE); NITRITE NEGATIVE (NEGATIVE); PH 5.5 (5.0-9.0); SPECIFIC GRAVITY <= 1.005 (1.005-1.030); UROBILINOGEN 0.2 E.U./dl (0.2-1.0)
[2017-08-04 23:31] LABS: BACTERIA TRACE; WBC 0-2 wbc/hpf (0-5)
[2017-08-05] VITALS (7 sets, daily range): BP systolic 109–145; BP diastolic 62–93
[2017-08-05 04:52] LABS: HEMATOCRIT 36.9 % (37.0-47.0); HEMOGLOBIN 12.9 g/dl (12.0-16.0); MEAN CELL VOLUME 96.6 fl (81.0-99.0); MEAN CORPUSCULAR HGB 33.8 pg (27.0-31.0); PLATELET COUNT AUTOMATED 295 10*3/uL (130-400); RED BLOOD COUNT 3.82 10*6/uL (4.10-5.10); RED CELL DISTRI WIDTH 13.4 % (0-14.5); WHITE BLOOD COUNT 13.4 10*3/uL (4.8-10.8)
[2017-08-05 05:03] LABS: ACT PARTIAL THROMBO TIME 30.7 SECONDS (20.8-31.5)
[2017-08-05 05:04] LABS: CREATININE 1.2 mg/dL (0.55-1.02); POTASSIUM 4.3 mmol/L (3.5-5.1)
[2017-08-05 05:14] LABS: PLATELET SUFFICIENCY NORMAL (NORMAL); TOTAL CELLS COUNTED 100 #CELLS
[2017-08-05 05:15] LABS: BURR CELLS FEW; THYROID STIM HORMONE (HS) 0.982 uIU/ml (0.358-4.75)
[2017-08-06] VITALS: BP 114/55
[2017-08-06 07:26] LABS: HEMATOCRIT 35.1 % (37.0-47.0); HEMOGLOBIN 11.8 g/dl (12.0-16.0); MEAN CELL VOLUME 97.8 fl (81.0-99.0); MEAN CORPUSCULAR HGB 32.9 pg (27.0-31.0); MEAN CORPUSCULAR HGB CONC 33.6 g/dl (33.0-37.0); MEAN PLATELET VOLUME 9.5 fl (9.6-12.3); PLATELET COUNT AUTOMATED 316 10*3/uL (130-400); RED BLOOD COUNT 3.59 10*6/uL (4.10-5.10); RED CELL DISTRI WIDTH 14.3 % (0-14.5); WHITE BLOOD COUNT 26.3 10*3/uL (4.8-10.8)
[2017-08-06 07:52] LABS: ALBUMIN 2.9 gm/dl (3.1-4.5); BUN 8 mg/dl (7-24); CHLORIDE 105 mmol/L (98-107); CREATININE 1.09 mg/dL (0.55-1.02); PHOSPHOROUS 3.5 mg/dL (2.5-4.9); POTASSIUM 4.3 mmol/L (3.5-5.1); SODIUM 136 mmol/L (136-145)
[2017-08-06 08:00] VITALS: BP 116/56
[2017-08-06 08:18] LABS: PLATELET SUFFICIENCY NORMAL (NORMAL); TOTAL CELLS COUNTED 100 #CELLS
[2017-08-06 12:00] VITALS: BP 124/67
[2017-08-06 16:00] VITALS: BP 121/53
[2017-08-06 20:00] VITALS: BP 122/52
[2017-08-07] VITALS (9 sets, daily range): BP systolic 132–162; BP diastolic 69–96
[2017-08-07 07:40] LABS: HEMATOCRIT 34.7 % (37.0-47.0); HEMOGLOBIN 11.5 g/dl (12.0-16.0); MEAN CELL VOLUME 99.1 fl (81.0-99.0); MEAN CORPUSCULAR HGB 32.9 pg (27.0-31.0); MEAN CORPUSCULAR HGB CONC 33.1 g/dl (33.0-37.0); MEAN PLATELET VOLUME 9.5 fl (9.6-12.3); PLATELET COUNT AUTOMATED 307 10*3/uL (130-400); RED CELL DISTRI WIDTH 14.4 % (0-14.5); WHITE BLOOD COUNT 22.7 10*3/uL (4.8-10.8)
[2017-08-07 07:53] LABS: ALKALINE PHOSPHATASE 107 U/L (45-117); BUN 10 mg/dl (7-24); CHLORIDE 105 mmol/L (98-107); CREATININE 1.02 mg/dL (0.55-1.02); POTASSIUM 4.3 mmol/L (3.5-5.1); SGOT/AST 23 IU/L (3-35); SGPT/ALT 43 U/L (12-78); SODIUM 139 mmol/L (136-145); TOTAL PROTEIN 6.5 gm/dL (6.4-8.2)
[2017-08-07 08:17] LABS: ATYPICAL LYMPHS 1 % (0-0); PLATELET SUFFICIENCY NORMAL (NORMAL); TOTAL CELLS COUNTED 100 #CELLS
[2017-08-08] VITALS: BP 169/88; BP 99/50
[2017-08-08 08:00] VITALS: BP 153/78
[2017-08-08] MEDS ORDERED: FLUCONAZOLE100 MG PO (11:28)
[2017-08-08] MEDS ORDERED: PREDNISONE10 MG PO (11:28)
[2017-08-08] MEDS ORDERED: MUCINEX ER600 MG PO (11:28)
[2017-08-08 12:00] VITALS: BP 169/95
[2017-08-08] MEDS ORDERED: LEVAQUIN500 M2 PO (13:06)
[2017-08-08] MEDS ORDERED: PROVENTIL HFA6.7 GM INH (13:34)
[2017-08-08 14:10] LABS: ACID FAST SMEAR Negative (.); ACID FAST SPEC PROCESSING Concentration (.)
[2017-08-08 16:00] VITALS: BP 157/88
[2017-08-08 20:00] VITALS: BP 156/75
[2017-08-09] VITALS: BP 148/80; BP 179/79
[2017-08-09 01:00] VITALS: BP 148/80
[2017-08-09 08:35] VITALS: BP 186/91
== END 2017-08-09 12:30 | disposition home or self-care (01) | DRG 871 ==
LOC: ED 20:27 → EDHOLD 23:38 → 4E 23:38
PROVIDERS: Internal Medicine; Internal Medicine Critical Care Medicine; Nurse Practitioner; Registered Nurse
PROC: 0BC28ZZ Extirpation of Matter from Carina, Via Natural or Artificial Opening Endoscopic (ICD-10-PCS; principal; 2017-08-07)
PROC: 0BC18ZZ Extirpation of Matter from Trachea, Via Natural or Artificial Opening Endoscopic (ICD-10-PCS; 2017-08-07)
PROC: 0BC98ZZ Extirpation of Matter from Lingula Bronchus, Via Natural or Artificial Opening Endoscopic (ICD-10-PCS; 2017-08-07)
PROC: 0BC48ZZ Extirpation of Matter from Right Upper Lobe Bronchus, Via Natural or Artificial Opening Endoscopic (ICD-10-PCS; 2017-08-07)
PROC: 0BC88ZZ Extirpation of Matter from Left Upper Lobe Bronchus, Via Natural or Artificial Opening Endoscopic (ICD-10-PCS; 2017-08-07)
PROC: 0BC58ZZ Extirpation of Matter from Right Middle Lobe Bronchus, Via Natural or Artificial Opening Endoscopic (ICD-10-PCS; 2017-08-07)
PROC: 0BC68ZZ Extirpation of Matter from Right Lower Lobe Bronchus, Via Natural or Artificial Opening Endoscopic (ICD-10-PCS; 2017-08-07)
DX: A41.9 Sepsis, unspecified organism (principal); J18.9 Pneumonia, unspecified organism; E87.2 Acidosis; J44.0 Chronic obstructive pulmonary disease with (acute) lower respiratory infection; E87.1 Hypo-osmolality and hyponatremia; J45.901 Unspecified asthma with (acute) exacerbation; B37.0 Candidal stomatitis; J44.1 Chronic obstructive pulmonary disease with (acute) exacerbation; F20.0 Paranoid schizophrenia; I10 Essential (primary) hypertension; J20.9 Acute bronchitis, unspecified; E78.00 Pure hypercholesterolemia, unspecified; F17.210 Nicotine dependence, cigarettes, uncomplicated; E66.09 Other obesity due to excess calories; F32.9 Major depressive disorder, single episode, unspecified; E78.1 Pure hyperglyceridemia; E55.9 Vitamin D deficiency, unspecified; Z71.6 Tobacco abuse counseling; Z99.81 Dependence on supplemental oxygen; Z98.51 Tubal ligation status; Z68.34 Body mass index [BMI] 34.0-34.9, adult; Z98.891 History of uterine scar from previous surgery; Z79.899 Other long term (current) drug therapy; Z88.8 Allergy status to other drugs, medicaments and biological substances; Z82.49 Family history of ischemic heart disease and other diseases of the circulatory system; Z83.3 Family history of diabetes mellitus; Z81.8 Family history of other mental and behavioral disorders

== ENCOUNTER → 2017-08-13 | Outpatient (CLI) | payer OTHER ==
[~2017-08-13] MED LIST changes: +CARVEDILOL25 MG PO; +CETIRIZINE10 MG PO; +FLUCONAZOLE100 MG PO; +LATU80TA PO; +LEVAQUIN500 M2 PO; +LORADAMED10 MG PO; +NEURONTIN300 MG PO; +OMEPRAZOLE20 M2 PO; +PROVENTIL HFA6.7 GM INH; +SINEQUAN25 MG PO; +SINGULAIR10 M1 PO; +TESSALON PERLE100 MG PO
== END ==
LOC: RAD 11:36
DX: J06.9 Acute upper respiratory infection, unspecified (principal); I10 Essential (primary) hypertension; J44.9 Chronic obstructive pulmonary disease, unspecified; Z87.891 Personal history of nicotine dependence

== ENCOUNTER 2017-10-15 06:55 | Emergency (ER) | payer OTHER ==
[~2017-10-15] VITALS: Ht 165.1 cm; Wt 78.9 kg
[2017-10-15 07:50] VITALS: BP 122/80
[2017-10-15 07:54] LABS: BASO # 0.1 10*3/uL (0.0-0.1); BASO % 1.1 % (0.0-1.0); EOS # 1.1 10*3/uL (0.0-0.4); EOS % 8.8 % (1.0-4.0); HEMOGLOBIN 13.9 g/dl (12.0-16.0); LYMPH # 3.9 10*3/uL (1.3-4.4); LYMPH % 29.9 % (27.0-41.0); MEAN CELL VOLUME 101.9 fl (81.0-99.0); MEAN CORPUSCULAR HGB 33.7 pg (27.0-31.0); MEAN CORPUSCULAR HGB CONC 33.1 g/dl (33.0-37.0); MEAN PLATELET VOLUME 8.8 fl (9.6-12.3); MONO # 1.1 10*3/uL (0.1-1.0); MONO % 8.2 % (3.0-9.0); NEUT # 6.7 10*3/uL (2.3-7.9); NEUT % 51.6 % (47.0-73.0); PLATELET COUNT AUTOMATED 337 10*3/uL (130-400); RED BLOOD COUNT 4.12 10*6/uL (4.10-5.10); RED CELL DISTRI WIDTH 15.9 % (0-14.5)
[2017-10-15 08:13] LABS: ALBUMIN 2.9 gm/dl (3.1-4.5); ALKALINE PHOSPHATASE 161 U/L (45-117); BUN 6 mg/dl (7-24); CHLORIDE 106 mmol/L (98-107); CREATININE 1.29 mg/dL (0.55-1.02); POTASSIUM 3.9 mmol/L (3.5-5.1); SGOT/AST 33 IU/L (3-35); SGPT/ALT 28 U/L (12-78); SODIUM 138 mmol/L (136-145); TOTAL PROTEIN 7.2 gm/dL (6.4-8.2)
[2017-10-15 08:14] LABS: TROPONIN I < 0.015 ng/ml (<0.045)
[2017-10-15 09:50] LABS: BILIRUBIN NEGATIVE (NEGATIVE); BLOOD NEGATIVE (NEGATIVE); CLARITY SL CLOUDY (CLEAR); COLOR YELLOW (YELLOW); GLUCOSE NEGATIVE (NEGATIVE); KETONE NEGATIVE (NEGATIVE); LEUKO ESTERASE NEGATIVE (NEGATIVE); NITRITE NEGATIVE (NEGATIVE); PH 5.5 (5.0-9.0); SPECIFIC GRAVITY <= 1.005 (1.005-1.030); UROBILINOGEN 0.2 E.U./dl (0.2-1.0)
[2017-10-15 10:12] LABS: BACTERIA 1+; EPITHELIAL CELLS 20-30; WBC 51-100 wbc/hpf (0-5); WHITE BLOOD CELL CAST 15-20
[2017-10-15] MEDS ORDERED: LEVAQUIN250 M1 PO (10:27)
[2017-10-15] MEDS ORDERED: DIFLUCAN150 MG PO (10:27)
[2017-10-15] MEDS ORDERED: Motrin,Rufen800 MG PO (10:29)
== END 2017-10-15 10:35 | disposition home or self-care (01) ==
LOC: ED 06:55
PROVIDERS: Emergency Medicine
DX: S29.012A Strain of muscle and tendon of back wall of thorax, initial encounter (principal); N39.0 Urinary tract infection, site not specified; G89.29 Other chronic pain; E78.00 Pure hypercholesterolemia, unspecified; I10 Essential (primary) hypertension; F17.200 Nicotine dependence, unspecified, uncomplicated; Z98.890 Other specified postprocedural states; Z98.51 Tubal ligation status; Z79.899 Other long term (current) drug therapy; Z88.8 Allergy status to other drugs, medicaments and biological substances; Z88.3 Allergy status to other anti-infective agents; X50.1XXA Overexertion from prolonged static or awkward postures, initial encounter; Y93.89 Activity, other specified; Y92.89 Other specified places as the place of occurrence of the external cause; Y99.9 Unspecified external cause status

== ENCOUNTER 2017-11-25 20:02 | Inpatient (IN) | payer OTHER ==
[~2017-11-25] VITALS: Ht 157.5 cm; Wt 78.9 kg
--- NOTE | ~2017-11-25 | CON ---
[place], [place] REPORT OF CONSULTATION NAME: ESTEFANIA CHONG [facility] #: [id number] UNIT #: [id number] ROOM: 505 DOCTOR: RALPH SCHAFER MD BIRTHDATE: [birth year] DOS: 11/26/2017 PULMONARY CONSULTATION, EVALUATION AND MANAGEMENT CONSULTATION REQUESTED BY: Hospitalist Service. REASON FOR CONSULTATION: Assessment of respiratory symptoms, possibly with pneumonia and others. HISTORY OF PRESENT ILLNESS: This is a 47-year-old white female known to me with history of COPD and other respiratory symptoms, previously treated in 07/2017, presented to the hospital Emergency Room as the patient developed progressive cough for the past several days. The symptoms have been noted progressive worsening in the last few days. The symptoms started approximately a couple of weeks ago. The patient's cough has been noted to be severe, nonproductive at the present time. The shortness of breath was noted with mild exertion and continued wheezing, which is described to be audible. The symptoms were associated with the pain noted in the low portion of the chest as well. Pain is described moderate to severe without radiation, occurs only with a deep cough or body movements. REVIEW OF SYSTEMS: CONSTITUTIONAL: She reported symptoms of fatigue and tiredness with low grade fever. EYES: Denies any burning, discharge or redness, or tenderness. EARS, NOSE, THROAT SYMPTOMS: Denies sore throat, hoarseness, otalgia, postnasal drainage or epistaxis. CARDIOVASCULAR: No angina pain, edema, pain of the lower extremity. GASTROINTESTINAL: Dysphagia, nausea, vomiting, diarrhea, abdominal pain, hematemesis, melena, or hematochezia. GENITOURINARY: No dysuria, suprapubic pain, hematuria. MUSCULOSKELETAL: The patient without any acute joint pain, redness, or tenderness. SKIN: No abnormal lesions or rashes. CENTRAL NERVOUS SYSTEM: No dizziness, headache, diplopia, or syncopal episodes. Remaining systems were reviewed. They were noted all negative. PAST MEDICAL HISTORY: 1. Known with history of chronic obstructive pulmonary disease. 2. Past history of pneumonia. 3. Chronic pain syndrome. 4. History of depression. 5. Essential hypertension. 6. Morbid obese. 7. Paranoid schizophrenia. 8. Nicotine dependence. SOCIAL HISTORY: The patient is single, has 4 children, lives at home. Smoking noted since teenager, pack of cigarettes per day, currently smoking less than [place], [place] REPORT OF CONSULTATION NAME: ESTEFANIA CHONG UNIT #: [id number] ROOM: [facility] DOCTOR: ARLPH SCHAFER MD BIRTHDATE: [birth year] half a pack of cigarettes per day. Denies history of alcohol use, illicit drug use. PAST SURGICAL HISTORY: 1. Endometrial ablation. 2. . 3. Fiberoptic bronchoscopy that was done on 08/07/2017. FAMILY HISTORY: Both parents have been . Father from suicide and mother was killed with a homicide. MEDICATIONS: Currently, the patient on this admission noted use of Solu-Medrol 40 mg b.i.d., simvastatin, Lovenox for DVT prophylaxis, tizanidine p.r.n. use, Tessalon Perles p.r.n. use 100 mg q.8 hours, gabapentin, doxepin, nicotine replacement patches 21 mg, magnesium hydroxide, Rocephin, Zithromax and DuoNeb every 4 hours while awake. DRUG ALLERGIES: 1. ALLERGY TO DOXYCYCLINE, CAUSING ANGIOEDEMA. 2. NORVASC. PHYSICAL EXAMINATION: GENERAL: A 47-year-old female who has been noted to be currently awake and alert, no acute distress. Height of 5 feet 2 inches, weight 174 pounds, BMI 31.8. VITAL SIGNS: The patient recorded normal temperature, respiratory rate 18-20, heart rate 87-101, blood pressure 101/65. The pulse oxygen saturation on room air 95% saturation. HEENT: Head was atraumatic. Eyes nonicterus. Moderate decreased breath sound. Decreased posterior pharyngeal space with high tongue base crowding the soft tissue structures. CARDIOVASCULAR: S1, S2 audible. LUNGS: Noted moderate decreased breath sound, diffuse expiratory wheezing without any crackles. ABDOMEN: Soft, nontender. Bowel sounds present. EXTREMITIES: Chronic obesity without any edema. MUSCULOSKELETAL: Without any acute deformities. SKIN: Visible skin with no lesions or rashes. CENTRAL NERVOUS SYSTEM: Cranial nerves 2-12 intact. No focal deficit. LABORATORY DATA: CBC done 11/25/2017. WBC count 13.2, hemoglobin and hematocrit normal, platelet count was normal. Eosinophils were significantly elevated at 10.6. The lactic acid noted at 2.7. The PT, PTT was noted as normal. CMP of the patient of 57, BUN 3, creatinine was normal. Sodium 131. CBC of the patient this morning, WBC count 11.7, hemoglobin 13.7, hematocrit 42.3, platelet count 324,000. CMP was 58. BUN and creatinine was normal. Troponin for the patient, which was done this morning was noted as normal. Lactic acid 2.7 on admission, 2.0 later on yesterday. Chest x-ray of the patient, 2-view, which was done for this patient was reviewed, shows moderate-sized pleural fluid noted for the patient on the right side for this [place], [place] REPORT OF CONSULTATION NAME: ESTEFANIA CHONG UNIT #: [id number] ROOM: [facility] DOCTOR: DARRELL SCHAFER MDM BIRTHDATE: [birth year] patient with possibility infiltration or compression atelectasis. IMPRESSION: 1. 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 2. Acute chronic nicotine dependence as well. 3. Current pleural fluid, consideration should be also given for possibility of malignancy as well because of the right-sided pleural fluid. 4. The patient with moderate obesity as well. PLAN OF TREATMENT: Continue current antibiotic for the patient's community-acquired infection. Obtain the nasopharyngeal swab with the usual virus including influenza infection. Obtain the sputum for Gram stain and culture. Order the CT scan of the chest for this patient with intravenous contrast for this patient for further assessment for the patient current pleural fluid. Thoracentesis would be done for this patient after that. Other supportive therapy, plan of management and care plan to be given for this patient. After the review of the CT scan of the chest, bronchoscopy would be also considered to be done for this patient as well for further assessment. Usual care, other plan of treatment for this patient to be done for this patient based on the progression of the illnesses. Agree with continued use of the nicotine replacement patches for this patient to overcome any nicotine withdrawal. Supportive care for this patient and treatment and therapies. Further changes in the treatment will be modified based on the progression of the illness. RALPH FRANCIS MD CM:CONSTR:REPORT OF CONSULTATION 1455 11/27/17 1550 interface
--- NOTE | ~2017-11-25 | EKG ---
[place], [place] ELECTROCARDIOGRAM REPORT NAME: ESTEFANIA CHONG UNIT #: [id number] ROOM: [facility] DOCTOR: PENNY NG MD,RALPH BIRTHDATE: [birth year] DOS: 11/25/2017 PROCEDURE: Electrocardiogram. PROCEDURE DATE AND TIME: 11/25/2017 at 09:01 p.m. FINDINGS: The electrocardiogram showed normal sinus rhythm, heart rate of 92 beats per minute. RALPH FRANCIS MD CM:EKGRPT:ELECTROCARDIOGRAM REPORT 00 10 RALPH NG MD
--- NOTE | ~2017-11-25 | PR ---
[place], [place] PROGRESS NOTE NAME: ESTEFANIA CHONG [facility] #: [id number] UNIT #: [id number] ROOM: 505 DOCTOR: PENNY NG MD,RALPH BIRTHDATE: [birth year] DOS: 11/27/2017 SUBJECTIVE: The patient noted comfortable at this time. She noted coughing and wheezing. She denies any symptoms of acute chest pain at this time, denies symptoms headache, nausea, vomiting, diarrhea, abdominal pain. Edema of the lower extremities. She was noted quite anxious. She refused the bronchoscopy that was planned to be done today. She had a CT scan of the chest which was completed yesterday. The patient was personally reviewed, chest CT that was ordered by me. The remaining system review of the patient noted, all negative. OBJECTIVE: VITAL SIGNS: Which has been recorded shows the temperature noted as normal. The respiratory 18, heart rate 95, blood pressure 130/81-120/70. The pulse oxygen saturation of the patient noted on room air 93% saturation at rest. HEENT: Moderate obesity. Head was atraumatic. Eyes nonicterus. NECK: Supple. CARDIOVASCULAR: S1, S2 audible. LUNGS: Decreased breath sounds noted in the right lung. The expiratory wheezing present bilaterally. There were no crackles. ABDOMEN: Soft, nontender, bowel sounds present. EXTREMITIES: The patient noted without any acute edema. SKIN: No lesions or rashes. MUSCULOSKELETAL: The patient without any deformities. LABORATORY DATA: CT of the chest patient does not show evidence of pulmonary embolism. Large right pleural fluid was noted ____ be excluded. Significant compression atelectasis noted in the right lower lobe as well. The left lung was noted clear of any pulmonary infiltration or any nodules. The airway appeared to be clear. IMPRESSION: 1. The patient with ongoing acute exacerbation of chronic obstructive pulmonary disease with possibility of acute pneumonia. Leukocytosis also noted with elevated white cell count 22.1 today. CBC with normal hemoglobin and hematocrit. 2. Differential of the current pleural fluid would be considered possibility of acute pneumonia or malignancy to be excluded as well. 3. The patient with history of nicotine dependence. 4. Acute exacerbation of chronic obstructive pulmonary disease/bronchial asthma. PLAN OF MANAGEMENT: The findings of CT scan were discussed with the patient in detail. She was described the necessity of diagnostic procedure. Thoracentesis to be done. For further evaluation of pleural fluid to pinpoint the exact etiology of the current pleural fluid prior to making any further change in treatment. She agreed for the procedure but later on, came to the nursing staff and signed against medical advice. She did not express to me about signing against medical advice or refusal of the procedure. Nurses informed me about that. The case was also discussed with Dr. Ambrosio who is the attending of this patient for today's management. [place], [place] PROGRESS NOTE NAME: ESTEFANIA CHONG [facility] UNIT #: [id number] ROOM: 505 DOCTOR: RALPH SCHAFER MD BIRTHDATE: [birth year] RALPH FRANCIS MD CM:JOHN [id number] RALPH NG MD 11/27/17 1628 interface
[~2017-11-25 20:02] MED LIST changes: +DIFLUCAN150 MG PO; +LEVAQUIN250 M1 PO; +Motrin,Rufen800 MG PO
[2017-11-25 20:07] VITALS: BP 149/100
[2017-11-25] MEDS ORDERED: AUGMENTIN 875875 MG PO (21:07)
[2017-11-25] MEDS ORDERED: ZITHROMAX250 MG PO (21:07)
[2017-11-25 21:23] LABS: BASO # 0.1 10*3/uL (0.0-0.1); BASO % 1.1 % (0.0-1.0); EOS # 1.4 10*3/uL (0.0-0.4); EOS % 10.6 % (1.0-4.0); HEMATOCRIT 46.8 % (37.0-47.0); HEMOGLOBIN 15.5 g/dl (12.0-16.0); LYMPH # 4.9 10*3/uL (1.3-4.4); LYMPH % 37.3 % (27.0-41.0); MEAN CELL VOLUME 98.5 fl (81.0-99.0); MEAN CORPUSCULAR HGB 32.6 pg (27.0-31.0); MEAN CORPUSCULAR HGB CONC 33.1 g/dl (33.0-37.0); MEAN PLATELET VOLUME 8.5 fl (9.6-12.3); MONO # 0.7 10*3/uL (0.1-1.0); MONO % 5.5 % (3.0-9.0); PLATELET COUNT AUTOMATED 364 10*3/uL (130-400); RED BLOOD COUNT 4.75 10*6/uL (4.10-5.10); RED CELL DISTRI WIDTH 15.6 % (0-14.5); WHITE BLOOD COUNT 13.2 10*3/uL (4.8-10.8)
[2017-11-25 21:33] LABS: ACT PARTIAL THROMBO TIME 25.2 SECONDS (20.8-31.5)
[2017-11-25 21:39] LABS: ALBUMIN 3.2 gm/dl (3.1-4.5); ALKALINE PHOSPHATASE 134 U/L (45-117); BUN 3 mg/dl (7-24); CHLORIDE 98 mmol/L (98-107); CREATININE 0.89 mg/dL (0.55-1.02); POTASSIUM 4.1 mmol/L (3.5-5.1); SGOT/AST 21 IU/L (3-35); SGPT/ALT 25 U/L (12-78); SODIUM 131 mmol/L (136-145); TOTAL PROTEIN 7.2 gm/dL (6.4-8.2)
[2017-11-25 21:41] LABS: TROPONIN I < 0.015 ng/ml (<0.045)
[2017-11-25 22:30] VITALS: BP 132/76
[2017-11-25 23:04] VITALS: BP 117/76
[2017-11-26] VITALS: BP 130/67
[2017-11-26 03:06] LABS: BASO # 0.1 10*3/uL (0.0-0.1); EOS # 1.6 10*3/uL (0.0-0.4); EOS % 13.6 % (1.0-4.0); HEMATOCRIT 42.3 % (37.0-47.0); HEMOGLOBIN 13.7 g/dl (12.0-16.0); LYMPH % 42.7 % (27.0-41.0); MEAN CORPUSCULAR HGB 32.7 pg (27.0-31.0); MEAN CORPUSCULAR HGB CONC 32.4 g/dl (33.0-37.0); MEAN PLATELET VOLUME 8.6 fl (9.6-12.3); MONO # 0.6 10*3/uL (0.1-1.0); MONO % 5.5 % (3.0-9.0); NEUT # 4.3 10*3/uL (2.3-7.9); NEUT % 36.9 % (47.0-73.0); PLATELET COUNT AUTOMATED 324 10*3/uL (130-400); RED BLOOD COUNT 4.19 10*6/uL (4.10-5.10); RED CELL DISTRI WIDTH 15.6 % (0-14.5); WHITE BLOOD COUNT 11.7 10*3/uL (4.8-10.8)
[2017-11-26 03:35] LABS: ALBUMIN 2.8 gm/dl (3.1-4.5); BUN 3 mg/dl (7-24); CHLORIDE 102 mmol/L (98-107); CHOLESTEROL 161 mg/dL (<200); CREATININE 0.93 mg/dL (0.55-1.02); SGOT/AST 19 IU/L (3-35); SGPT/ALT 24 U/L (12-78); SODIUM 137 mmol/L (136-145); TRIGLYCERIDES 250 mg/dl (<150); VLDL CHOLESTEROL 50 mg/dL (6-40)
[2017-11-26 03:41] LABS: ALKALINE PHOSPHATASE 112 U/L (45-117); FREE T4 1.02 ng/dl (0.76-1.46); HDL CHOLESTEROL 23 mg/dl (40-60); LDL CHOLESTEROL 88 mg/dL (9-159)
[2017-11-26 06:51] LABS: VITAMIN D, 25-HYDROXY 21.8 ng/mL (30-100)
[2017-11-26 08:00] VITALS: BP 103/65
[2017-11-26 12:00] VITALS: BP 118/76
[2017-11-26 16:00] VITALS: BP 120/73
[2017-11-26 20:00] VITALS: BP 128/70
[2017-11-26 20:34] LABS: BILIRUBIN NEGATIVE (NEGATIVE); BLOOD NEGATIVE (NEGATIVE); CLARITY CLEAR (CLEAR); COLOR YELLOW (YELLOW); GLUCOSE 1+ (NEGATIVE); KETONE NEGATIVE (NEGATIVE); LEUKO ESTERASE NEGATIVE (NEGATIVE); NITRITE NEGATIVE (NEGATIVE); PH 5.5 (5.0-9.0); SPECIFIC GRAVITY <= 1.005 (1.005-1.030); UROBILINOGEN 0.2 E.U./dl (0.2-1.0)
[2017-11-26 20:50] LABS: BACTERIA TRACE; RBC 0-2 rbc/hpf (0-2); WBC 0-2 wbc/hpf (0-5)
[2017-11-27 00:23] VITALS: BP 120/70
[2017-11-27 07:49] LABS: BASO % 0.1 % (0.0-1.0); HEMATOCRIT 45.5 % (37.0-47.0); HEMOGLOBIN 14.9 g/dl (12.0-16.0); LYMPH # 1.6 10*3/uL (1.3-4.4); LYMPH % 7.4 % (27.0-41.0); MEAN CELL VOLUME 100.2 fl (81.0-99.0); MEAN CORPUSCULAR HGB 32.8 pg (27.0-31.0); MEAN CORPUSCULAR HGB CONC 32.7 g/dl (33.0-37.0); MEAN PLATELET VOLUME 8.7 fl (9.6-12.3); MONO # 0.6 10*3/uL (0.1-1.0); MONO % 2.5 % (3.0-9.0); NEUT # 19.7 10*3/uL (2.3-7.9); NEUT % 89.1 % (47.0-73.0); PLATELET COUNT AUTOMATED 346 10*3/uL (130-400); RED BLOOD COUNT 4.54 10*6/uL (4.10-5.10); RED CELL DISTRI WIDTH 15.8 % (0-14.5); WHITE BLOOD COUNT 22.1 10*3/uL (4.8-10.8)
[2017-11-27 08:00] VITALS: BP 130/81
[2017-11-27 08:00] LABS: BUN 7 mg/dl (7-24); CHLORIDE 102 mmol/L (98-107); CREATININE 1.17 mg/dL (0.55-1.02); POTASSIUM 4.4 mmol/L (3.5-5.1); SODIUM 136 mmol/L (136-145)
== END 2017-11-27 09:30 | disposition left against medical advice (07) | DRG 871 ==
LOC: ED 20:02 → EDHOLD 21:53 → 5E 21:53
PROVIDERS: Internal Medicine; Internal Medicine Hospice and Palliative Medicine; Physician Assistant
DX: A41.9 Sepsis, unspecified organism (principal); J11.08 Influenza due to unidentified influenza virus with specified pneumonia; J90 Pleural effusion, not elsewhere classified; J96.11 Chronic respiratory failure with hypoxia; D72.1 Eosinophilia; E87.2 Acidosis; E44.1 Mild protein-calorie malnutrition; E66.01 Morbid (severe) obesity due to excess calories; E87.1 Hypo-osmolality and hyponatremia; J44.1 Chronic obstructive pulmonary disease with (acute) exacerbation; J44.0 Chronic obstructive pulmonary disease with (acute) lower respiratory infection; F20.0 Paranoid schizophrenia; F31.9 Bipolar disorder, unspecified; F12.10 Cannabis abuse, uncomplicated; R65.20 Severe sepsis without septic shock; R00.0 Tachycardia, unspecified; R74.8 Abnormal levels of other serum enzymes; F41.1 Generalized anxiety disorder; I10 Essential (primary) hypertension; F17.210 Nicotine dependence, cigarettes, uncomplicated; E66.09 Other obesity due to excess calories; E78.00 Pure hypercholesterolemia, unspecified; K21.9 Gastro-esophageal reflux disease without esophagitis; E55.9 Vitamin D deficiency, unspecified; G89.29 Other chronic pain; Z53.21 Procedure and treatment not carried out due to patient leaving prior to being seen by health care provider; Z71.6 Tobacco abuse counseling; Z99.81 Dependence on supplemental oxygen; Z88.1 Allergy status to other antibiotic agents; Z88.8 Allergy status to other drugs, medicaments and biological substances; Z98.51 Tubal ligation status; Z82.49 Family history of ischemic heart disease and other diseases of the circulatory system; Z83.3 Family history of diabetes mellitus; Z79.899 Other long term (current) drug therapy; Z81.8 Family history of other mental and behavioral disorders; Z68.32 Body mass index [BMI] 32.0-32.9, adult

== ENCOUNTER 2017-11-27 12:46 | Inpatient (IN) | payer OTHER ==
[~2017-11-27] VITALS: Ht 157 cm; Wt 79.0 kg
--- NOTE | ~2017-11-27 | PR ---
[place], [place] PROGRESS NOTE NAME: ESTEFANIA CHONG [facility] #: [id number] UNIT #: [id number] ROOM: 408 DOCTOR: PENNY NG MD,RALPH BIRTHDATE: [birth year] DOS: 11/29/2017 PULMONARY PROGRESS NOTE SUBJECTIVE: The patient has not been noted any ongoing acute complaints at this time. She has not been noted in any acute distress at this time. The cough has been noted mild without sputum expectoration. Shortness of breath has decreased after the thoracentesis, which was done personally at the bedside of this patient. She has not been reported symptoms of abdominal pain. Denies symptoms of nausea, vomiting, diarrhea, hematemesis, or melena. Denies edema or pain of the lower extremities. Remaining systems were reviewed. They were noted all negative. OBJECTIVE: VITAL SIGNS: For the patient recorded as normal temperature, respiratory rate 18, heart rate of 45-81. The blood pressure 193/97-152/86. Pulse oxygen saturation was recorded on room air was 96% saturation. HEENT: Head was atraumatic. Eyes: No icterus. NECK: Supple. It was obese. CARDIOVASCULAR SYSTEM: S1, S2 is audible. LUNGS: Noted without any wheezing or crackles. ABDOMEN: Soft, obese, nontender. EXTREMITIES: Without any acute edema. LABORATORY DATA: Review of the pleural fluid analysis yesterday pH noted 7.19, which was decreased, albumin of 2.5. The cholesterol of 153. Triglyceride noted as 64. Glucose was noted as 94, total protein 4.2 with an ALT of 763 markedly elevated. The differentials of the floor were noted as WBC is 4812, 78% eosinophils. Cytology of the pleural fluid was pending. IMPRESSION: 1. The patient has been currently noted with eosinophilic predominant exudative pleural fluid. Differential of acute bacterial pneumonia, eosinophilic pneumonia and malignancy remains in a strong consideration. 2. History of nicotine abuse as well. PLAN OF MANAGEMENT: Repeat another chest x-ray in the morning. Continue current antibiotics. Monitor respiratory status closely. Bronchodilators administration. Continue current dose of Solu-Medrol 40 mg b.i.d. Repeat another chest x-ray in the morning to assess progression of the pleural fluid, which noted only small amount remaining after the thoracentesis yesterday. Continue abstinence from tobacco use. Usual care. Continue antibiotics. Acid fast smear culture of the pleural fluid will be ordered as well. In addition, treatment changes will be ordered based on progression of the illness. [place], [place] PROGRESS NOTE NAME: ESTEFANIA CHONG UNIT #: [id number] ROOM: [facility] DOCTOR: RALPH SCHAFER MD BIRTHDATE: [birth year] RALPH FRANCIS MD CM:PNTRANS [id number] RALPH NG MD 11/30/175 interface
--- NOTE | ~2017-11-27 | PROC NOTE ---
[place], [place] PROCEDURE NOTE NAME: ESTEFANIA CHONG UNIT #: [id number] ROOM: 408 DOCTOR: PENNY NG MD,RALPH BIRTHDATE: [birth year] DOS: 11/28/2017 PROCEDURE: Right-sided thoracentesis under ultrasound guidance. Assessment of the right pleural fluid, the patient remains persistent. POSTOPERATIVE DIAGNOSES: Moderate to large pleural fluid was noted. COMPLICATIONS: None. PROCEDURE DESCRIPTION: Informed consent obtained for this patient. Ultrasound of the chest was already performed. The pocket of fluid for the site of thoracentesis localized with skin marker in the right posterior chest wall with the ultrasound guidance. After that, skin was cleaned with chlorhexidine solution. A 1% lidocaine was administered in the skin intercostal space without difficulty. During administration of local anesthetic, small amount of fluid was aspirated. A small incision was given in the skin. [place] thoracentesis catheter introduced through the incision into the right pleural space. A total of 1000 mL of pleural fluid was removed sent all the samples and specimens. Ultrasound of the patient, post-thoracentesis was noted with almost complete removal of the pleural fluid. The chest x-ray was also done post-procedure, which was reviewed and it shows improvement in the aeration of the lung was noted with persistent infiltration still noted and/or atelectasis combination in the right lower chest. There was no evidence of any pneumothorax. RALPH FRANCIS MD CM:PROCNOTE:PROCEDURE NOTE 1247 1707 RALPH NG MD
--- NOTE | ~2017-11-27 | CON ---
[place], [place] REPORT OF CONSULTATION [id number] UN[facility] #: [id number] ROOM: 408 DOCTOR: PENNY NG MDRALPH BIRTHDATE: [birth year] DOS: 11/28/2017 PULMONARY CONSULTATION EVALUATION AND MANAGEMENT CONSULTATION REQUESTED BY: Hospitalist. REASON FOR CONSULTATION: After recent signed against medical advice, the patient returned back to the hospital readmitted the same day for the pleural fluid assessment, abnormal respiratory symptoms. HISTORY OF PRESENT ILLNESS: This is a 47-year-old female patient who has been admitted to the hospital. The patient initially on 11/25/2017, signed against medical advice. On 11/27/2017 had returned back to the hospital readmitted on 11/27/2017, for further continued care. She has been reported symptoms of having shortness of breath that occurred with exertion. She has been noted symptoms of cough that has not been noted without any sputum expectoration. Denies symptoms of chest pain or hemoptysis with current symptoms. The pain, which has been noted previously related to the cough seemed to be somewhat better. She went home, stated that she needs to take care of her animals at home and return back after that. REVIEW OF SYSTEMS: CONSTITUTIONAL SYMPTOM: Fatigue, at times noted with a low-grade fever at home. EYES: Denies any burning, redness or discharge or dryness. EAR, NOSE, THROAT: No symptoms of sore throat, hoarseness, otalgia, postnasal drainage or epistaxis. CARDIOVASCULAR SYSTEM: Denies anginal pain, edema, pain, lower extremity. GASTROINTESTINAL: No dysphagia, nausea, vomiting, diarrhea, abdominal pain, hematemesis, melena, hematochezia. SKIN: No abnormal lesions or rashes. CENTRAL NERVOUS SYSTEM: No dizziness, headache, diplopia, syncopal episodes. Remaining systems were reviewed. They were noted all negative. PAST MEDICAL HISTORY, SOCIAL HISTORY, SURGICAL HISTORY, FAMILY HISTORY: Review, remains unchanged from the note of 11/26/2017, consultation which was done, the reference would be made as consultation for further details available in the [facility]. CURRENT MEDICATIONS: Administered noted use of Latuda, losartan, Lovenox for DVT prophylaxis, Protonix, gabapentin, Coreg, doxepin, simvastatin, Zanaflex, oxybutynin, Solu-Medrol 40 mg b.i.d., Singulair, nicotine replacement patches, Zithromax and Rocephin. DRUG ALLERGIES: 1. NOTED DOXYCYCLINE CAUSING ANGIOEDEMA. 2. NORVASC. PHYSICAL EXAMINATION: [place], [place] REPORT OF CONSULTATION NAME: ESTEFANIA CHONG UNIT #: [id number] ROOM: [facility] DOCTOR: PENNY NG MD,RALPH BIRTHDATE: [birth year] GENERAL: This is a 47-year-old female who has been currently noted to be awake and alert without acute distress. Height of 5 feet 2 inches, weight 174 pounds, BMI 32. VITAL SIGNS: Temperature remains normal in the last 24 hours, respiration 16-18, heart rate 83-100, and blood pressure 150/98 to 134/79. Pulse oxygen saturation noted on room air 96% saturation. HEAD, EYES, EARS, NOSE, AND THROAT: Head was atraumatic. Eyes nonicterus. NECK: Supple. Chronic obesity. Decreased posterior pharyngeal space. CARDIOVASCULAR SYSTEM: S1, S2 audible. LUNGS: Noted with absent breath sounds noted in the right lower chest. There were no wheezing or crackles heard. ABDOMEN: Soft, nontender. Bowel sounds present. CENTRAL NERVOUS SYSTEM: Cranial nerves 2-12 intact. No focal deficit. MUSCULOSKELETAL: Without any acute deformities. SKIN: Noted without any lesions or rashes. LABORATORY AND DIAGNOSTIC DATA: Upon return yesterday, the lactic acid noted 3.5. The troponin noted as normal. Chest x-ray was done on 11/27/2017, shows persistent right pleural fluid was noted somewhat smaller to compare with the previous chest x-ray. Left lung appeared to be clear. Whether there is additional infiltration ____ unable to determine. CBC that was done this morning WBC count 18.5, hemoglobin 13.5 and 42.2, platelet count was noted as BUN of 21,000. Eosinophils were noted 0.1%. CBC on 11/27/2017 in the Emergency Room when the patient return WBC count 25.3, hemoglobin normal, hematocrit normal, platelet count 269,000. CMP this morning, BUN 8, creatinine 1.04, glucose 136. IMPRESSION: Noted with the current pleural fluid in the right side remains persistent with the pneumonia, malignancy or other etiologies, considered with ongoing acute exacerbation of chronic obstructive pulmonary disease, history of chronic nicotine dependence. Acute chronic obesity with the diagnostic assessment diagnosis suspicion of obstructive sleep apnea disorder as well. PLAN OF THERAPY: Thoracentesis was planned to be done today. The ultrasound of the chest was already performed at the bedside. Large pocket of fluid was noted which appeared to be containing some debris. The risk and benefits of procedure have been already discussed with the patient. No changes in the antibiotics as well. Any addition of changes, which needs to be done after thoracentesis will be ordered accordingly. All other supportive plan of management at this time. Usual care. Thanks for allowing me to participate in care of this patient. [place], [place] REPORT OF CONSULTATION NAME: ESTEFANIA CHONG UNIT #: [id number] ROOM: [facility] DOCTOR: RALPH SCHAFER MD BIRTHDATE: [birth year] RALPH FRANCIS MD CM:CONSTR:REPORT OF CONSULTATION 1244 11/28/17 1632 interface
--- NOTE | ~2017-11-27 | EKG ---
[place], [place] ELECTROCARDIOGRAM REPORT NAME: ESTEFANIA CHONG UNIT #: [id number] ROOM: 408 DOCTOR: PENNY NG MD,RALPH BIRTHDATE: [birth year] DOS: 11/27/2017 PROCEDURE: Electrocardiogram. PROCEDURE DATE AND TIME: 11/27/2017 at 02:35 p.m. FINDINGS: Normal sinus rhythm. Heart rate 99 beats per minute. RALPH FRANCIS MD CM:EKGRPT:ELECTROCARDIOGRAM REPORT 1758 1807 RALPH NG MD
[~2017-11-27 12:46] MED LIST changes: +AUGMENTIN 875875 MG PO; +ZITHROMAX250 MG PO
[2017-11-27 12:48] VITALS: BP 165/96
[2017-11-27 13:15] VITALS: BP 140/81
[2017-11-27 14:02] LABS: HEMATOCRIT 44.3 % (37.0-47.0); HEMOGLOBIN 14.4 g/dl (12.0-16.0); MEAN CELL VOLUME 100.7 fl (81.0-99.0); MEAN CORPUSCULAR HGB 32.7 pg (27.0-31.0); MEAN CORPUSCULAR HGB CONC 32.5 g/dl (33.0-37.0); MEAN PLATELET VOLUME 8.8 fl (9.6-12.3); PLATELET COUNT AUTOMATED 369 10*3/uL (130-400); RED CELL DISTRI WIDTH 15.7 % (0-14.5); WHITE BLOOD COUNT 25.3 10*3/uL (4.8-10.8)
[2017-11-27 14:15] LABS: BUN 7 mg/dl (7-24); CHLORIDE 101 mmol/L (98-107); CREATININE 1.13 mg/dL (0.55-1.02); POTASSIUM 4.8 mmol/L (3.5-5.1); SODIUM 137 mmol/L (136-145)
[2017-11-27 14:22] LABS: BILIRUBIN NEGATIVE (NEGATIVE); BLOOD NEGATIVE (NEGATIVE); CLARITY CLEAR (CLEAR); COLOR YELLOW (YELLOW); GLUCOSE NEGATIVE (NEGATIVE); KETONE NEGATIVE (NEGATIVE); LEUKO ESTERASE NEGATIVE (NEGATIVE); NITRITE NEGATIVE (NEGATIVE); UROBILINOGEN 0.2 E.U./dl (0.2-1.0)
[2017-11-27 14:24] LABS: TROPONIN I < 0.015 ng/ml (<0.045)
[2017-11-27 14:27] LABS: URINE AMPHETAMINES < 1000 (1000ng/ml); URINE BARBITURATES < 200 (200ng/ml); URINE BENZODIAZEPINES > 200 (200ng/ml); URINE CANNABINOIDS (THC) < 50 (50ng/ml); URINE COCAINE < 300 (300ng/ml); URINE METHADONE < 300 (300ng/ml); URINE OPIATES > 300 (300ng/ml)
[2017-11-27 14:27] LABS: PLATELET SUFFICIENCY NORMAL (NORMAL); TOTAL CELLS COUNTED 100 #CELLS
[2017-11-27 14:28] LABS: URINE PHENCYCLIDINE < 25 (25ng/ml)
[2017-11-27 14:45] VITALS: BP 134/81; BP 138/82
[2017-11-27 14:45] LABS: RBC 0-2 rbc/hpf (0-2); WBC 0-2 wbc/hpf (0-5)
[2017-11-27 16:00] VITALS: BP 134/79
[2017-11-27 20:00] VITALS: BP 139/92
[2017-11-28 00:04] VITALS: BP 132/77
[2017-11-28 07:16] LABS: BASO % 0.2 % (0.0-1.0); EOS % 0.1 % (1.0-4.0); HEMATOCRIT 42.5 % (37.0-47.0); HEMOGLOBIN 13.5 g/dl (12.0-16.0); LYMPH % 10.6 % (27.0-41.0); MEAN CELL VOLUME 102.7 fl (81.0-99.0); MEAN CORPUSCULAR HGB 32.6 pg (27.0-31.0); MEAN CORPUSCULAR HGB CONC 31.8 g/dl (33.0-37.0); MEAN PLATELET VOLUME 8.9 fl (9.6-12.3); MONO # 0.5 10*3/uL (0.1-1.0); MONO % 2.4 % (3.0-9.0); NEUT % 86.1 % (47.0-73.0); PLATELET COUNT AUTOMATED 321 10*3/uL (130-400); RED BLOOD COUNT 4.14 10*6/uL (4.10-5.10); RED CELL DISTRI WIDTH 15.9 % (0-14.5); WHITE BLOOD COUNT 18.5 10*3/uL (4.8-10.8)
[2017-11-28 07:34] LABS: ALBUMIN 2.9 gm/dl (3.1-4.5); BUN 8 mg/dl (7-24); CHLORIDE 108 mmol/L (98-107); CREATININE 1.04 mg/dL (0.55-1.02); POTASSIUM 4.7 mmol/L (3.5-5.1); SGOT/AST 22 IU/L (3-35); SGPT/ALT 30 U/L (12-78); SODIUM 138 mmol/L (136-145)
[2017-11-28 07:36] LABS: ALKALINE PHOSPHATASE 96 U/L (45-117); PHOSPHOROUS 3.3 mg/dL (2.5-4.9); TOTAL PROTEIN 6.5 gm/dL (6.4-8.2)
[2017-11-28 08:00] VITALS: BP 158/98
[2017-11-28 10:57] LABS: BODY FLUID WBC 4812 /uL
[2017-11-28 11:36] LABS: BF LYMPHOCYTES 12 %; BF MACROPHAGES 10 %
[2017-11-28 12:00] VITALS: BP 152/72
[2017-11-28 16:00] VITALS: BP 156/90
[2017-11-28 20:00] VITALS: BP 173/91
[2017-11-29] VITALS: BP 157/93
[2017-11-29 06:04] LABS: ALBUMIN 2.6 gm/dl (3.1-4.5); ALKALINE PHOSPHATASE 132 U/L (45-117); BUN 7 mg/dl (7-24); CHLORIDE 108 mmol/L (98-107); CREATININE 0.91 mg/dL (0.55-1.02); POTASSIUM 4.5 mmol/L (3.5-5.1); SGOT/AST 21 IU/L (3-35); SGPT/ALT 35 U/L (12-78); SODIUM 140 mmol/L (136-145); TOTAL PROTEIN 6.1 gm/dL (6.4-8.2)
[2017-11-29 06:12] LABS: BASO % 0.1 % (0.0-1.0); HEMATOCRIT 41.1 % (37.0-47.0); HEMOGLOBIN 13.1 g/dl (12.0-16.0); LYMPH # 1.4 10*3/uL (1.3-4.4); LYMPH % 8.6 % (27.0-41.0); MEAN CELL VOLUME 101.5 fl (81.0-99.0); MEAN CORPUSCULAR HGB 32.3 pg (27.0-31.0); MEAN CORPUSCULAR HGB CONC 31.9 g/dl (33.0-37.0); MONO # 0.6 10*3/uL (0.1-1.0); MONO % 3.6 % (3.0-9.0); NEUT # 14.3 10*3/uL (2.3-7.9); NEUT % 86.9 % (47.0-73.0); PLATELET COUNT AUTOMATED 286 10*3/uL (130-400); RED BLOOD COUNT 4.05 10*6/uL (4.10-5.10); RED CELL DISTRI WIDTH 15.6 % (0-14.5); WHITE BLOOD COUNT 16.5 10*3/uL (4.8-10.8)
[2017-11-29 08:00] VITALS: BP 193/97
[2017-11-29 08:11] LABS: IMMUNOGLOBULIN M, QNT 84 mg/dL (26-217)
[2017-11-29 09:00] VITALS: BP 152/86
[2017-11-29 12:00] VITALS: BP 160/92
[2017-11-29 16:10] LABS: ALDOLASE 002030 7.7 U/L (3.3-10.3); ANGIOTENSIN-CONVERTING ENZYME 66 U/L (14-82); ATYPICAL PANCA <1:20 titer (Neg:<1:20); CYTOPLASMIC (C-ANCA) <1:20 titer (Neg:<1:20)
[2017-12-02 16:07] LABS: IGG SUBCLASS 1 593 mg/dL (248-810); IGG SUBCLASS 2 114 mg/dL (130-555); IGG SUBCLASS 3 97 mg/dL (15-102); IGG SUBCLASS 4 10 mg/dL (2-96); IMMUNOGLOBULIN G, QNT 929 mg/dL (700-1600)
[2017-12-04 14:06] LABS: MITOGEN VALUE 0.27 IU/mL (.); TB Ag MINUS NIL VALUE 0.01 IU/mL (.); TB Ag VALUE 0.05 IU/mL (.); TB GOLD Indeterminate (Negative)
== END 2017-11-29 15:39 | disposition left against medical advice (07) | DRG 871 ==
LOC: ED 12:46 → 4E 13:33 → EDHOLD 13:33 → 4E 13:50
PROVIDERS: Emergency Medicine; Internal Medicine Critical Care Medicine; Registered Nurse
PROC: 0W993ZZ Drainage of Right Pleural Cavity, Percutaneous Approach (ICD-10-PCS; principal; 2017-11-28)
DX: A41.9 Sepsis, unspecified organism (principal); J18.1 Lobar pneumonia, unspecified organism; J90 Pleural effusion, not elsewhere classified; J96.10 Chronic respiratory failure, unspecified whether with hypoxia or hypercapnia; D72.1 Eosinophilia; J44.0 Chronic obstructive pulmonary disease with (acute) lower respiratory infection; J44.1 Chronic obstructive pulmonary disease with (acute) exacerbation; F20.0 Paranoid schizophrenia; J98.11 Atelectasis; F12.10 Cannabis abuse, uncomplicated; F31.9 Bipolar disorder, unspecified; G89.29 Other chronic pain; E66.09 Other obesity due to excess calories; E78.00 Pure hypercholesterolemia, unspecified; K21.9 Gastro-esophageal reflux disease without esophagitis; F41.1 Generalized anxiety disorder; Z53.21 Procedure and treatment not carried out due to patient leaving prior to being seen by health care provider; R65.20 Severe sepsis without septic shock; R00.1 Bradycardia, unspecified; F17.210 Nicotine dependence, cigarettes, uncomplicated; Z88.8 Allergy status to other drugs, medicaments and biological substances; Z88.1 Allergy status to other antibiotic agents; Z87.01 Personal history of pneumonia (recurrent); Z98.51 Tubal ligation status; Z81.8 Family history of other mental and behavioral disorders; Z83.3 Family history of diabetes mellitus; Z82.49 Family history of ischemic heart disease and other diseases of the circulatory system; Z79.899 Other long term (current) drug therapy; Z71.6 Tobacco abuse counseling; Z68.32 Body mass index [BMI] 32.0-32.9, adult

== ENCOUNTER 2017-12-02 12:47 | Emergency (ER) | payer OTHER ==
[~2017-12-02] VITALS: Ht 157.4 cm; Wt 79.4 kg
[2017-12-02 12:54] VITALS: BP 160/100
[2017-12-02 13:25] LABS: BASO # 0.1 10*3/uL (0.0-0.1); BASO % 0.4 % (0.0-1.0); EOS % 6.1 % (1.0-4.0); HEMATOCRIT 44.7 % (37.0-47.0); HEMOGLOBIN 15.2 g/dl (12.0-16.0); LYMPH % 24.1 % (27.0-41.0); MEAN CELL VOLUME 95.9 fl (81.0-99.0); MEAN CORPUSCULAR HGB 32.6 pg (27.0-31.0); MONO % 6.2 % (3.0-9.0); NEUT # 10.4 10*3/uL (2.3-7.9); NEUT % 62.6 % (47.0-73.0); PLATELET COUNT AUTOMATED 317 10*3/uL (130-400); RED BLOOD COUNT 4.66 10*6/uL (4.10-5.10); RED CELL DISTRI WIDTH 15.2 % (0-14.5); WHITE BLOOD COUNT 16.5 10*3/uL (4.8-10.8)
[2017-12-02 13:41] LABS: ALBUMIN 3.1 gm/dl (3.1-4.5); CREATININE 1.19 mg/dL (0.55-1.02); POTASSIUM 3.9 mmol/L (3.5-5.1); TOTAL PROTEIN 6.9 gm/dL (6.4-8.2)
[2017-12-02] MEDS ORDERED: LEVAQUIN750 M1 PO (14:21)
[2017-12-02] MEDS ORDERED: PREDNISONE10 MG PO (14:21)
== END 2017-12-02 14:30 | disposition home or self-care (01) ==
LOC: ED 12:47
PROVIDERS: Nurse Practitioner Family
DX: J44.1 Chronic obstructive pulmonary disease with (acute) exacerbation (principal); R03.0 Elevated blood-pressure reading, without diagnosis of hypertension; F17.200 Nicotine dependence, unspecified, uncomplicated; Z88.8 Allergy status to other drugs, medicaments and biological substances; Z88.1 Allergy status to other antibiotic agents

== ENCOUNTER → 2017-12-23 | Outpatient (CLI) | payer OTHER | END | disposition home or self-care (01) | LOC: RAD 13:04 | DX: M79.89 Other specified soft tissue disorders (principal); M25.541 Pain in joints of right hand; Z87.891 Personal history of nicotine dependence ==

== ENCOUNTER → 2018-01-15 | Outpatient (CLI) | payer OTHER | END | disposition home or self-care (01) | LOC: LAB 11:37 | DX: J84.9 Interstitial pulmonary disease, unspecified (principal); J44.9 Chronic obstructive pulmonary disease, unspecified ==

== ENCOUNTER 2018-08-13 10:30 | Emergency (ER) | payer OTHER ==
[~2018-08-13] VITALS: Ht 157.4 cm; Wt 83.9 kg
[2018-08-13 10:32] VITALS: BP 117/79
[2018-08-13] MEDS ORDERED: NAPROSYN500 MG PO (11:57)
== END 2018-08-13 12:05 | disposition home or self-care (01) ==
LOC: ED 10:30
DX: S52.511A Displaced fracture of right radial styloid process, initial encounter for closed fracture (principal); F17.200 Nicotine dependence, unspecified, uncomplicated; Z88.8 Allergy status to other drugs, medicaments and biological substances; W19.XXXA Unspecified fall, initial encounter; Y93.89 Activity, other specified; Y92.89 Other specified places as the place of occurrence of the external cause; Y99.8 Other external cause status

== ENCOUNTER 2019-02-25 15:49 | Emergency (ER) | payer OTHER ==
[~2019-02-25] VITALS: Ht 157.4 cm; Wt 78.9 kg
[2019-02-25 15:53] VITALS: BP 172/83
== END 2019-02-25 17:24 | disposition home or self-care (01) ==
LOC: ED 15:49
DX: R60.0 Localized edema (principal); M79.604 Pain in right leg; M79.605 Pain in left leg; F17.200 Nicotine dependence, unspecified, uncomplicated; Z88.1 Allergy status to other antibiotic agents; Z88.8 Allergy status to other drugs, medicaments and biological substances; Z79.899 Other long term (current) drug therapy

== ENCOUNTER → 2019-02-25 | Outpatient (CLI) | payer OTHER | END | disposition home or self-care (01) | LOC: US 02-09 14:00 | DX: N93.9 Abnormal uterine and vaginal bleeding, unspecified (principal) ==

== ENCOUNTER 2019-04-16 17:40 | Emergency (ER) | payer OTHER ==
[~2019-04-16] VITALS: Ht 157.4 cm; Wt 78.9 kg
[2019-04-16 17:42] VITALS: BP 164/82
[2019-04-16] MEDS ORDERED: ELIMITE 5%60 GM T (19:59)
[2019-04-16] MEDS ORDERED: PREDNISONE20 M1 PO (19:59)
[2019-05-05] MEDS ORDERED: OXYBUTYNIN CHLOR5 MG PO (15:10)
[2019-05-05] MEDS ORDERED: LOSARTAN POTAS100 M1 PO (15:10)
[2019-05-05] MEDS ORDERED: VALACYCLOVIR H500 M1 PO (15:11)
[2019-05-05] MEDS ORDERED: HALDOL5 MG PO (15:11)
[2019-05-05] MEDS ORDERED: OMEPRAZOLE MAGN20 MG PO (15:12)
[2019-05-05] MEDS ORDERED: BANOPHEN25 MG PO (15:12)
[2019-05-05] MEDS ORDERED: CARVEDILOL12.5 MG PO (15:13)
[2019-05-05] MEDS ORDERED: GOOD NEIGHBOR L10 MG PO (15:13)
[2019-05-05] MEDS ORDERED: PROAIR HFA8.5 GM INH (15:14)
[2019-05-05] MEDS ORDERED: ALPRAZOLAM2 MG PO (15:15)
[2019-05-05] MEDS ORDERED: ZOLPIDEM TART10 MG PO (15:15)
[2019-05-05] MEDS ORDERED: LATANOPROST2.5 ML OP (15:16)
[2019-05-05] MEDS ORDERED: TIZANIDINE HCL4 MG PO (15:16)
[2019-05-05] MEDS ORDERED: SUMATRIPTAN SUC25 M1 PO (15:17)
[2019-05-12] MEDS ORDERED: Motrin,Rufen800 MG PO (08:27)
== END 2019-04-16 20:25 | disposition home or self-care (01) ==
LOC: ED 17:40
DX: L23.7 Allergic contact dermatitis due to plants, except food (principal); Z20.7 Contact with and (suspected) exposure to pediculosis, acariasis and other infestations; F17.200 Nicotine dependence, unspecified, uncomplicated; Z88.8 Allergy status to other drugs, medicaments and biological substances; Z88.1 Allergy status to other antibiotic agents

== ENCOUNTER → 2019-05-05 | Outpatient (CLI) | payer OTHER ==
[~2019-05-05] MED LIST changes: +ALPRAZOLAM2 MG PO; +BANOPHEN25 MG PO; +CARVEDILOL12.5 MG PO; +ELIMITE 5%60 GM T; +GOOD NEIGHBOR L10 MG PO; +LATANOPROST2.5 ML OP; +LOSARTAN POTAS100 M1 PO; +OMEPRAZOLE MAGN20 MG PO; +OXYBUTYNIN CHLOR5 MG PO; +PREDNISONE20 M1 PO; +SUMATRIPTAN SUC25 M1 PO; +TIZANIDINE HCL4 MG PO; +VALACYCLOVIR H500 M1 PO; +ZOLPIDEM TART10 MG PO
[2019-05-05 16:16] LABS: BUN 4 mg/dl (7-24); CHLORIDE 100 mmol/L (98-107); POTASSIUM 4.2 mmol/L (3.5-5.1); SODIUM 133 mmol/L (136-145)
[2019-05-05 18:46] LABS: BASO # 0.1 10*3/uL (0.0-0.1); BASO % 0.7 % (0.0-1.0); EOS # 0.5 10*3/uL (0.0-0.4); EOS % 3.1 % (1.0-4.0); HEMATOCRIT 39.1 % (37.0-47.0); LYMPH # 3.9 10*3/uL (1.3-4.4); LYMPH % 26.1 % (27.0-41.0); MEAN CORPUSCULAR HGB 32.9 pg (27.0-31.0); MEAN CORPUSCULAR HGB CONC 33.2 g/dl (33.0-37.0); MEAN PLATELET VOLUME 8.3 fl (9.6-12.3); MONO # 0.9 10*3/uL (0.1-1.0); MONO % 5.8 % (3.0-9.0); NEUT # 9.5 10*3/uL (2.3-7.9); NEUT % 63.6 % (47.0-73.0); PLATELET COUNT AUTOMATED 386 10*3/uL (130-400); RED BLOOD COUNT 3.95 10*6/uL (4.10-5.10); RED CELL DISTRI WIDTH 15.8 % (0-14.5)
== END | disposition home or self-care (01) ==
LOC: LAB 14:44
PROVIDERS: Obstetrics & Gynecology
DX: N93.9 Abnormal uterine and vaginal bleeding, unspecified (principal)

== ENCOUNTER → 2019-05-12 | Day surgery (SDC) | payer OTHER ==
[2019-05-05 15:08] VITALS: BP 145/80
[~2019-05-12] VITALS: Ht 157.4 cm; Wt 74.4 kg
[~2019-05-12] MED LIST changes: +FLONASE ALLERG9.9 ML NAS
[2019-05-12 06:35] VITALS: BP 120/64
[2019-05-12 08:20] VITALS: BP 148/89
[2019-05-12 08:35] VITALS: BP 128/64
[2019-05-12 08:50] VITALS: BP 110/79
[2019-05-12 09:05] VITALS: BP 113/71
== END | disposition home or self-care (01) ==
LOC: SDC 05-05 14:00
DX: N93.9 Abnormal uterine and vaginal bleeding, unspecified (principal); R93.89 Abnormal findings on diagnostic imaging of other specified body structures; N88.2 Stricture and stenosis of cervix uteri; I10 Essential (primary) hypertension; J44.9 Chronic obstructive pulmonary disease, unspecified; F41.9 Anxiety disorder, unspecified; F32.9 Major depressive disorder, single episode, unspecified; H40.9 Unspecified glaucoma; Z98.890 Other specified postprocedural states; Z79.899 Other long term (current) drug therapy; Z82.49 Family history of ischemic heart disease and other diseases of the circulatory system; Z83.3 Family history of diabetes mellitus

== ENCOUNTER 2019-06-30 10:48 | Emergency (ER) | payer OTHER ==
[~2019-06-30] VITALS: Ht 157.4 cm; Wt 74.4 kg
[~2019-06-30 10:48] MED LIST changes: -FLONASE ALLERG9.9 ML NAS
[2019-06-30 10:51] VITALS: BP 156/95
[2019-06-30 11:17] LABS: BASO # 0.1 10*3/uL (0.0-0.1); BASO % 0.9 % (0.0-1.0); EOS # 0.6 10*3/uL (0.0-0.4); EOS % 7.1 % (1.0-4.0); HEMATOCRIT 43.8 % (37.0-47.0); HEMOGLOBIN 14.8 g/dl (12.0-16.0); LYMPH # 2.2 10*3/uL (1.3-4.4); LYMPH % 27.3 % (27.0-41.0); MEAN CELL VOLUME 96.1 fl (81.0-99.0); MEAN CORPUSCULAR HGB 32.5 pg (27.0-31.0); MEAN CORPUSCULAR HGB CONC 33.8 g/dl (33.0-37.0); MEAN PLATELET VOLUME 8.4 fl (9.6-12.3); MONO # 0.5 10*3/uL (0.1-1.0); MONO % 5.9 % (3.0-9.0); NEUT # 4.8 10*3/uL (2.3-7.9); NEUT % 58.6 % (47.0-73.0); PLATELET COUNT AUTOMATED 375 10*3/uL (130-400); RED BLOOD COUNT 4.56 10*6/uL (4.10-5.10); RED CELL DISTRI WIDTH 13.6 % (0-14.5); WHITE BLOOD COUNT 8.2 10*3/uL (4.8-10.8)
[2019-06-30 11:34] LABS: ALBUMIN 3.2 gm/dl (3.1-4.5); ALKALINE PHOSPHATASE 118 U/L (45-117); BUN 3 mg/dl (7-24); CHLORIDE 97 mmol/L (98-107); POTASSIUM 4.2 mmol/L (3.5-5.1); SGOT/AST 31 IU/L (3-35); SGPT/ALT 27 U/L (12-78); SODIUM 128 mmol/L (136-145); TOTAL PROTEIN 6.6 gm/dL (6.4-8.2)
[2019-06-30 11:38] LABS: ETHYL ALCOHOL < 3.0 mg/dl (<3)
[2019-06-30 12:21] LABS: BILIRUBIN NEGATIVE (NEGATIVE); BLOOD NEGATIVE (NEGATIVE); CLARITY CLEAR (CLEAR); COLOR YELLOW (YELLOW); GLUCOSE NEGATIVE (NEGATIVE); KETONE NEGATIVE (NEGATIVE); LEUKO ESTERASE NEGATIVE (NEGATIVE); NITRITE NEGATIVE (NEGATIVE); SPECIFIC GRAVITY <= 1.005 (1.005-1.030); UROBILINOGEN 0.2 E.U./dl (0.2-1.0)
[2019-06-30 12:30] LABS: URINE AMPHETAMINES < 1000 (1000ng/ml); URINE BARBITURATES < 200 (200ng/ml); URINE BENZODIAZEPINES > 200 (200ng/ml); URINE CANNABINOIDS (THC) < 50 (50ng/ml); URINE COCAINE < 300 (300ng/ml); URINE METHADONE < 300 (300ng/ml); URINE OPIATES < 300 (300ng/ml)
[2019-06-30 12:31] LABS: URINE PHENCYCLIDINE < 25 (25ng/ml)
[2019-06-30 12:48] LABS: BACTERIA TRACE; CALCIUM OXALATE CRYSTALS TRACE
[2019-06-30] MEDS ORDERED: FLONASE ALLERG9.9 ML NAS (13:06)
== END 2019-06-30 14:00 | disposition home or self-care (01) ==
LOC: ED 10:48
PROVIDERS: Emergency Medicine
DX: J31.0 Chronic rhinitis (principal); E87.1 Hypo-osmolality and hyponatremia; R19.7 Diarrhea, unspecified; J02.9 Acute pharyngitis, unspecified; R11.2 Nausea with vomiting, unspecified; L21.0 Seborrhea capitis; F17.200 Nicotine dependence, unspecified, uncomplicated; J44.9 Chronic obstructive pulmonary disease, unspecified; I10 Essential (primary) hypertension; K21.9 Gastro-esophageal reflux disease without esophagitis; E78.00 Pure hypercholesterolemia, unspecified; E66.01 Morbid (severe) obesity due to excess calories; Z88.8 Allergy status to other drugs, medicaments and biological substances; Z79.899 Other long term (current) drug therapy

== ENCOUNTER → 2019-08-04 | Outpatient (CLI) | payer OTHER ==
[~2019-08-04] MED LIST changes: +FLONASE ALLERG9.9 ML NAS
[2019-08-06 01:03] LABS: ANTI-THROMBIN III ACTIVITY 84 % (75-135); PROTEIN S-FUNCTIONAL 164525 128 % (63-140)
== END | disposition home or self-care (01) ==
LOC: LAB 15:19
PROVIDERS: Obstetrics & Gynecology
DX: Z86.718 Personal history of other venous thrombosis and embolism (principal)

== ENCOUNTER 2021-01-12 04:44 | Emergency (ER) | payer OTHER ==
[~2021-01-12] VITALS: Ht 154.9 cm; Wt 92.1 kg
[2021-01-12 04:48] VITALS: BP 146/79
[2021-01-12 05:00] LABS: BILIRUBIN Negative (Negative); BLOOD Negative (Negative); CLARITY Clear (Clear); COLOR Yellow (Yellow); GLUCOSE Negative (Negative); KETONE Negative (Negative); LEUKO ESTERASE Negative (Negative); NITRITE Negative (Negative); SPECIFIC GRAVITY <= 1.005 (1.001-1.030); UROBILINOGEN 0.2 E.U./dl (0.0-1.0)
[2021-01-12 05:18] LABS: BACTERIA TRACE; EPITHELIAL CELLS 21-30
== END 2021-01-12 06:00 | disposition home or self-care (01) ==
LOC: ED 04:44
PROVIDERS: Emergency Medicine
DX: R33.9 Retention of urine, unspecified (principal); F12.90 Cannabis use, unspecified, uncomplicated; F17.200 Nicotine dependence, unspecified, uncomplicated; Z98.890 Other specified postprocedural states; Z98.51 Tubal ligation status; Z88.3 Allergy status to other anti-infective agents

== ENCOUNTER 2021-01-24 11:53 | Emergency (ER) | payer OTHER ==
[~2021-01-24] VITALS: Ht 157.4 cm; Wt 90.7 kg
[2021-01-24 12:07] VITALS: BP 145/72
[2021-01-24] MEDS ORDERED: PREDNISONE20 M1 PO (13:29)
[2021-01-24] MEDS ORDERED: ERYTHROMYCIN OPH1 GM OPH (13:29)
[2021-01-24] MEDS ORDERED: CEPHALEXIN500 M1 PO (13:29)
== END 2021-01-24 13:31 | disposition home or self-care (01) ==
LOC: ED 11:53
DX: H00.013 Hordeolum externum right eye, unspecified eyelid (principal); F22 Delusional disorders; Z88.8 Allergy status to other drugs, medicaments and biological substances; Z79.899 Other long term (current) drug therapy; Z98.890 Other specified postprocedural states; Z98.51 Tubal ligation status

== ENCOUNTER 2021-02-08 18:00 | Inpatient (IN) | payer OTHER ==
[~2021-02-08] VITALS: Ht 157.5 cm; Wt 87.2 kg
[~2021-02-08 18:00] MED LIST changes: +CEPHALEXIN500 M1 PO; +ERYTHROMYCIN OPH1 GM OPH
[2021-02-08 18:06] VITALS: BP 147/80
[2021-02-08 18:59] LABS: BILIRUBIN Negative (Negative); BLOOD Negative (Negative); CLARITY Clear (Clear); COLOR Yellow (Yellow); GLUCOSE Negative (Negative); KETONE Negative (Negative); LEUKO ESTERASE Negative (Negative); NITRITE Negative (Negative); SPECIFIC GRAVITY <= 1.005 (1.001-1.030); UROBILINOGEN 0.2 E.U./dl (0.0-1.0)
[2021-02-08 19:04] LABS: BASO # 0.2 10*3/uL (0.0-0.1); EOS # 0.7 10*3/uL (0.0-0.4); EOS % 5.1 % (1.0-4.0); LYMPH # 3.9 10*3/uL (1.3-4.4); LYMPH % 27.2 % (27.0-41.0); MEAN CELL VOLUME 84.7 fl (81.0-99.0); MEAN CORPUSCULAR HGB 28.6 pg (27.0-31.0); MEAN CORPUSCULAR HGB CONC 33.8 g/dl (33.0-37.0); MEAN PLATELET VOLUME 8.2 fl (9.6-12.3); MONO # 0.9 10*3/uL (0.1-1.0); MONO % 6.4 % (3.0-9.0); NEUT # 8.5 10*3/uL (2.3-7.9); NEUT % 59.5 % (47.0-73.0); PLATELET COUNT AUTOMATED 327 10*3/uL (130-400); RED BLOOD COUNT 4.37 10*6/uL (4.10-5.10); RED CELL DISTRI WIDTH 14.3 % (0-14.5); WHITE BLOOD COUNT 14.3 10*3/uL (4.8-10.8)
[2021-02-08 19:20] LABS: ALBUMIN 3.4 gm/dl (3.1-4.5); ALKALINE PHOSPHATASE 149 U/L (45-117); BUN 4 mg/dl (7-24); CHLORIDE 87 mmol/L (98-107); CREATININE 0.91 mg/dL (0.55-1.02); POTASSIUM 3.8 mmol/L (3.5-5.1); SGOT/AST 27 IU/L (3-35); SGPT/ALT 41 U/L (12-78); TOTAL PROTEIN 7.1 gm/dL (6.4-8.2)
[2021-02-08 19:21] LABS: TROPONIN I < 0.015 ng/ml (<0.045)
[2021-02-08 19:23] LABS: SODIUM 117 mmol/L (136-145)
[2021-02-08 21:26] VITALS: BP 131/73
[2021-02-08 21:29] VITALS: BP 93/50
[2021-02-08] MEDS ORDERED: FAMOTIDINE20 M1 PO (21:36)
[2021-02-08] MEDS ORDERED: HYDROCHLOROTHIA25 M1 PO (21:37)
[2021-02-08] MEDS ORDERED: CETIRIZINE HYDR10 MG PO (21:40)
[2021-02-08] MEDS ORDERED: BENZTROPINE MESY2 MG PO (21:41)
[2021-02-08] MEDS ORDERED: ESCITALOPRAM OX20 MG PO (21:43)
[2021-02-08] MEDS ORDERED: QUETIAPINE FUMA50 M1 PO (21:44)
[2021-02-08] MEDS ORDERED: REXULTI1 MG PO (21:45)
[2021-02-08 22:40] VITALS: BP 105/60; BP 122/86
[2021-02-08 22:46] LABS: BUN 4 mg/dl (7-24); CHLORIDE 87 mmol/L (98-107); CREATININE 0.98 mg/dL (0.55-1.02); POTASSIUM 3.8 mmol/L (3.5-5.1); SODIUM 120 mmol/L (136-145)
[2021-02-08] MEDS ORDERED: PROVENTIL HFA6.7 GM INH (23:57)
[2021-02-09 06:07] LABS: BUN 5 mg/dl (7-24); CHLORIDE 87 mmol/L (98-107); CHOLESTEROL 202 mg/dL (<200); CREATININE 1.01 mg/dL (0.55-1.02); FREE T4 1.03 ng/dl (0.76-1.46); LDL CHOLESTEROL 129 mg/dL (9-159); POTASSIUM 3.3 mmol/L (3.5-5.1); SODIUM 121 mmol/L (136-145); TRIGLYCERIDES 199 mg/dl (<150)
[2021-02-09 06:10] LABS: BASO # 0.1 10*3/uL (0.0-0.1); BASO % 1.1 % (0.0-1.0); EOS # 0.8 10*3/uL (0.0-0.4); HEMATOCRIT 38.2 % (37.0-47.0); LYMPH # 3.7 10*3/uL (1.3-4.4); LYMPH % 31.5 % (27.0-41.0); MEAN CELL VOLUME 86.4 fl (81.0-99.0); MEAN CORPUSCULAR HGB 28.3 pg (27.0-31.0); MEAN CORPUSCULAR HGB CONC 32.7 g/dl (33.0-37.0); MEAN PLATELET VOLUME 8.6 fl (9.6-12.3); MONO # 0.5 10*3/uL (0.1-1.0); MONO % 4.6 % (3.0-9.0); NEUT # 6.4 10*3/uL (2.3-7.9); PLATELET COUNT AUTOMATED 338 10*3/uL (130-400); RED BLOOD COUNT 4.42 10*6/uL (4.10-5.10); RED CELL DISTRI WIDTH 14.3 % (0-14.5); WHITE BLOOD COUNT 11.7 10*3/uL (4.8-10.8)
[2021-02-09 08:00] VITALS: BP 119/71
[2021-02-09 08:53] LABS: VITAMIN D, 25-HYDROXY 31.9 ng/mL (30-100)
== END 2021-02-09 09:38 | disposition left against medical advice (07) | DRG 468 ==
LOC: ED 18:00 → EDHOLD 20:10 → 4E 21:52 → 5E 21:52
PROVIDERS: Internal Medicine; Physician Assistant; ADMIT Family Medicine; ATTEND Family Medicine
DX: R33.9 Retention of urine, unspecified (principal); E87.1 Hypo-osmolality and hyponatremia; J44.9 Chronic obstructive pulmonary disease, unspecified; K21.9 Gastro-esophageal reflux disease without esophagitis; F31.9 Bipolar disorder, unspecified; F41.1 Generalized anxiety disorder; Z53.29 Procedure and treatment not carried out because of patient's decision for other reasons; D72.829 Elevated white blood cell count, unspecified; F17.210 Nicotine dependence, cigarettes, uncomplicated; F20.0 Paranoid schizophrenia; I10 Essential (primary) hypertension; E87.8 Other disorders of electrolyte and fluid balance, not elsewhere classified; R34 Anuria and oliguria; R74.8 Abnormal levels of other serum enzymes; Z71.6 Tobacco abuse counseling; Z88.1 Allergy status to other antibiotic agents; Z98.891 History of uterine scar from previous surgery; Z98.51 Tubal ligation status; Z83.3 Family history of diabetes mellitus; Z82.49 Family history of ischemic heart disease and other diseases of the circulatory system; Z81.8 Family history of other mental and behavioral disorders; Z87.01 Personal history of pneumonia (recurrent); Z79.899 Other long term (current) drug therapy

== ENCOUNTER 2021-04-21 11:44 | Emergency (ER) | payer OTHER ==
[~2021-04-21 11:44] MED LIST changes: +BENZTROPINE MESY2 MG PO; +CETIRIZINE HYDR10 MG PO; +ESCITALOPRAM OX20 MG PO; +FAMOTIDINE20 M1 PO; +HYDROCHLOROTHIA25 M1 PO; +QUETIAPINE FUMA50 M1 PO; +REXULTI1 MG PO
[2021-04-21 11:53] VITALS: BP 100/79
== END 2021-04-21 13:51 | disposition left against medical advice (07) ==
LOC: ED 11:44
DX: Z00.00 Encounter for general adult medical examination without abnormal findings (principal); Z53.21 Procedure and treatment not carried out due to patient leaving prior to being seen by health care provider

== ENCOUNTER 2021-04-24 09:20 | Emergency (ER) | payer OTHER ==
[~2021-04-24] VITALS: Ht 157.4 cm; Wt 83.5 kg
[2021-04-24 09:42] VITALS: BP 127/84
[2021-04-24 11:07] LABS: BASO # 0.1 10*3/uL (0.0-0.1); BASO % 1.2 % (0.0-1.0); EOS # 0.8 10*3/uL (0.0-0.4); EOS % 7.7 % (1.0-4.0); HEMATOCRIT 39.9 % (37.0-47.0); LYMPH # 2.5 10*3/uL (1.3-4.4); LYMPH % 23.7 % (27.0-41.0); MEAN CORPUSCULAR HGB 29.5 pg (27.0-31.0); MEAN CORPUSCULAR HGB CONC 34.3 g/dl (33.0-37.0); MEAN PLATELET VOLUME 8.4 fl (9.6-12.3); MONO # 0.7 10*3/uL (0.1-1.0); MONO % 6.2 % (3.0-9.0); NEUT # 6.4 10*3/uL (2.3-7.9); NEUT % 60.6 % (47.0-73.0); PLATELET COUNT AUTOMATED 299 10*3/uL (130-400); RED BLOOD COUNT 4.64 10*6/uL (4.10-5.10); RED CELL DISTRI WIDTH 13.8 % (0-14.5); WHITE BLOOD COUNT 10.6 10*3/uL (4.8-10.8)
[2021-04-24 11:20] LABS: ACT PARTIAL THROMBO TIME 30.6 SECONDS (20.0-32.1)
[2021-04-24 11:24] LABS: ALBUMIN 3.5 gm/dl (3.1-4.5); ALKALINE PHOSPHATASE 135 U/L (45-117); BUN 7 mg/dl (7-24); CHLORIDE 81 mmol/L (98-107); CREATININE 1.19 mg/dL (0.55-1.02); LIPASE 60 U/L (73-393); POTASSIUM 4.2 mmol/L (3.5-5.1); SGOT/AST 27 IU/L (3-35); SGPT/ALT 30 U/L (12-78); TOTAL PROTEIN 7.4 gm/dL (6.4-8.2)
[2021-04-24 11:28] LABS: BILIRUBIN Negative (Negative); BLOOD Negative (Negative); CLARITY Clear (Clear); COLOR Yellow (Yellow); GLUCOSE Negative (Negative); KETONE Negative (Negative); LEUKO ESTERASE Negative (Negative); NITRITE Negative (Negative); SPECIFIC GRAVITY <= 1.005 (1.001-1.030); UROBILINOGEN 0.2 E.U./dl (0.0-1.0)
[2021-04-24 11:38] LABS: TROPONIN I < 0.015 ng/ml (<0.045)
[2021-04-24 11:40] LABS: SODIUM 118 mmol/L (136-145)
[2021-04-24 11:48] LABS: BACTERIA 2+
== END 2021-04-24 12:41 | disposition left against medical advice (07) ==
LOC: ED 09:20
PROVIDERS: Emergency Medicine
DX: E87.1 Hypo-osmolality and hyponatremia (principal)

== ENCOUNTER 2021-05-05 16:32 | Emergency (ER) | payer OTHER ==
[~2021-05-05] VITALS: Wt 90.7 kg
[2021-05-05 16:37] VITALS: BP 160/75
[2021-05-05 17:53] LABS: BASO # 0.1 10*3/uL (0.0-0.1); BASO % 1.1 % (0.0-1.0); EOS # 0.9 10*3/uL (0.0-0.4); EOS % 9.4 % (1.0-4.0); HEMATOCRIT 41.5 % (37.0-47.0); LYMPH # 3.1 10*3/uL (1.3-4.4); MEAN CELL VOLUME 89.8 fl (81.0-99.0); MEAN CORPUSCULAR HGB 29.4 pg (27.0-31.0); MEAN CORPUSCULAR HGB CONC 32.8 g/dl (33.0-37.0); MEAN PLATELET VOLUME 8.4 fl (9.6-12.3); MONO # 0.6 10*3/uL (0.1-1.0); MONO % 6.2 % (3.0-9.0); NEUT # 4.9 10*3/uL (2.3-7.9); PLATELET COUNT AUTOMATED 290 10*3/uL (130-400); RED BLOOD COUNT 4.62 10*6/uL (4.10-5.10); RED CELL DISTRI WIDTH 13.9 % (0-14.5); WHITE BLOOD COUNT 9.6 10*3/uL (4.8-10.8)
[2021-05-05 18:08] LABS: ALBUMIN 3.4 gm/dl (3.1-4.5); CREATININE 1.19 mg/dL (0.55-1.02); POTASSIUM 4.5 mmol/L (3.5-5.1); TOTAL PROTEIN 7.2 gm/dL (6.4-8.2)
[2021-05-05] MEDS ORDERED: HYDROCODONE-AC1 EAC1 PO (18:22)
== END 2021-05-05 19:04 | disposition home or self-care (01) ==
LOC: ED 16:32
PROVIDERS: Family Medicine
DX: E87.1 Hypo-osmolality and hyponatremia (principal); M79.606 Pain in leg, unspecified; F17.200 Nicotine dependence, unspecified, uncomplicated; Z79.899 Other long term (current) drug therapy; Z79.2 Long term (current) use of antibiotics; Z98.890 Other specified postprocedural states; Z98.51 Tubal ligation status

== ENCOUNTER → 2021-11-23 | Outpatient (CLI) | payer OTHER ==
[~2021-11-23] MED LIST changes: +HYDROCODONE-AC1 EAC1 PO
[2021-11-23 13:46] LABS: CREATININE 1.34 mg/dL (0.55-1.02); POTASSIUM 4.9 mmol/L (3.5-5.1)
== END | disposition home or self-care (01) ==
LOC: LAB 13:01
PROVIDERS: Family Medicine; ATTEND Family Medicine
DX: E87.1 Hypo-osmolality and hyponatremia (principal); R82.90 Unspecified abnormal findings in urine; J44.9 Chronic obstructive pulmonary disease, unspecified

== ENCOUNTER → 2021-11-28 | Outpatient (CLI) | payer OTHER ==
[2021-11-28 11:02] LABS: BILIRUBIN Negative (Negative); BLOOD Negative (Negative); CLARITY Clear (Clear); COLOR Yellow (Yellow); GLUCOSE Negative (Negative); KETONE Negative (Negative); LEUKO ESTERASE Negative (Negative); NITRITE Negative (Negative); SPECIFIC GRAVITY <= 1.005 (1.001-1.030); UROBILINOGEN 0.2 E.U./dl (0.0-1.0)
[2021-11-28 12:00] LABS: RBC 0-2 rbc/hpf (0-2)
[2021-11-29 13:29] LABS: URINE CHLORIDE, RANDOM < 10 mmol/L
== END | disposition home or self-care (01) ==
LOC: LAB 10:35
PROVIDERS: ATTEND Family Medicine
DX: J44.9 Chronic obstructive pulmonary disease, unspecified (principal); E87.1 Hypo-osmolality and hyponatremia; R82.90 Unspecified abnormal findings in urine

== ENCOUNTER → 2022-01-24 | Outpatient (CLI) | payer OTHER ==
[2022-01-24 13:10] LABS: BILIRUBIN Negative (Negative); BLOOD Negative (Negative); CLARITY Clear (Clear); COLOR Yellow (Yellow); GLUCOSE Negative (Negative); KETONE Negative (Negative); LEUKO ESTERASE Negative (Negative); NITRITE Negative (Negative); PH 6.5 (4.5-8.0); SPECIFIC GRAVITY <= 1.005 (1.001-1.030); UROBILINOGEN 0.2 E.U./dl (0.0-1.0)
[2022-01-24 13:15] LABS: URINE CHLORIDE, RANDOM < 10 mmol/L
[2022-01-24 13:22] LABS: BUN 4 mg/dl (7-24); CHLORIDE 92 mmol/L (98-107); CREATININE 0.97 mg/dL (0.55-1.02); POTASSIUM 4.6 mmol/L (3.5-5.1); SODIUM 127 mmol/L (136-145)
[2022-01-24 13:22] LABS: BACTERIA 1+; EPITHELIAL CELLS 51-100; WBC 0-2 wbc/hpf (0-5)
== END | disposition home or self-care (01) ==
LOC: LAB 12:37
PROVIDERS: ATTEND Family Medicine
DX: E87.1 Hypo-osmolality and hyponatremia (principal); R82.90 Unspecified abnormal findings in urine

== ENCOUNTER → 2022-02-05 | Outpatient (CLI) | payer OTHER ==
[2022-02-05 13:04] LABS: BUN 6 mg/dl (7-24); CHLORIDE 94 mmol/L (98-107); CREATININE 1.09 mg/dL (0.55-1.02); POTASSIUM 4.6 mmol/L (3.5-5.1); SODIUM 128 mmol/L (136-145)
== END | disposition home or self-care (01) ==
LOC: LAB 12:08
PROVIDERS: ATTEND Family Medicine
DX: E87.1 Hypo-osmolality and hyponatremia (principal)

== ENCOUNTER 2022-02-24 01:53 | Emergency (ER) | payer OTHER ==
[~2022-02-24] VITALS: Ht 165.1 cm; Wt 72.6 kg
[2022-02-24 02:17] VITALS: BP 112/67
[2022-02-24] MEDS ORDERED: ONDANSETRON4 MG SL (03:13)
[2022-02-24] MEDS ORDERED: NEURONTIN100 MG PO (03:14)
== END 2022-02-24 03:58 | disposition home or self-care (01) ==
LOC: ED 01:53
DX: U07.1 COVID-19 (principal); F12.90 Cannabis use, unspecified, uncomplicated; Z79.899 Other long term (current) drug therapy; Z88.1 Allergy status to other antibiotic agents; Z88.3 Allergy status to other anti-infective agents

== ENCOUNTER → 2022-06-29 | Outpatient (CLI) | payer OTHER ==
[~2022-06-29] MED LIST changes: +NEURONTIN100 MG PO; +ONDANSETRON4 MG SL
== END | disposition home or self-care (01) ==
LOC: US 02-28 13:00
PROVIDERS: ATTEND Family Medicine
DX: N39.490 Overflow incontinence (principal)

== ENCOUNTER → 2022-07-18 | Outpatient (CLI) | payer OTHER | END | disposition home or self-care (01) | LOC: MAMMO 07-10 14:30 | PROVIDERS: ATTEND Obstetrics & Gynecology | DX: Z12.31 Encounter for screening mammogram for malignant neoplasm of breast (principal) ==

== ENCOUNTER 2022-10-08 03:36 | Emergency (ER) | payer OTHER ==
[~2022-10-08] VITALS: Ht 157.4 cm; Wt 83.9 kg
[~2022-10-08 03:36] MED LIST changes: +FUROSEMIDE20 M1 PO; +REXULTI4 MG PO; +TRINTELLIX10 MG PO
[2022-10-08 03:39] VITALS: BP 119/73
[2022-10-08 03:59] LABS: BASO # 0.1 10*3/uL (0.0-0.1); BASO % 1.1 % (0.0-1.0); EOS % 8.6 % (1.0-4.0); HEMATOCRIT 40.6 % (37.0-47.0); LYMPH # 4.5 10*3/uL (1.3-4.4); LYMPH % 37.5 % (27.0-41.0); MEAN CELL VOLUME 98.3 fl (81.0-99.0); MEAN CORPUSCULAR HGB 31.7 pg (27.0-31.0); MEAN CORPUSCULAR HGB CONC 32.3 g/dl (33.0-37.0); MEAN PLATELET VOLUME 8.5 fl (9.6-12.3); MONO # 0.7 10*3/uL (0.1-1.0); NEUT # 5.4 10*3/uL (2.3-7.9); NEUT % 45.4 % (47.0-73.0); PLATELET COUNT AUTOMATED 287 10*3/uL (130-400); RED BLOOD COUNT 4.13 10*6/uL (4.10-5.10); RED CELL DISTRI WIDTH 14.3 % (0-14.5); WHITE BLOOD COUNT 11.9 10*3/uL (4.8-10.8)
[2022-10-08 04:15] LABS: ALKALINE PHOSPHATASE 129 U/L (46-116); CHLORIDE 100 mmol/L (98-107); POTASSIUM 4.1 mmol/L (3.4-5.1); SGPT/ALT 12 U/L (10-49); TOTAL PROTEIN 5.8 gm/dL (6.0-8.0)
[2022-10-08 04:17] LABS: BUN < 5 mg/dl (9-23)
== END 2022-10-08 04:53 | disposition home or self-care (01) ==
LOC: ED 03:36
PROVIDERS: Internal Medicine
DX: G62.9 Polyneuropathy, unspecified (principal); R60.0 Localized edema; E87.1 Hypo-osmolality and hyponatremia; E44.0 Moderate protein-calorie malnutrition; N18.31 Chronic kidney disease, stage 3a; I12.9 Hypertensive chronic kidney disease with stage 1 through stage 4 chronic kidney disease, or unspecified chronic kidney disease; J45.909 Unspecified asthma, uncomplicated; F32.A Depression, unspecified; F41.9 Anxiety disorder, unspecified; J44.9 Chronic obstructive pulmonary disease, unspecified; F17.200 Nicotine dependence, unspecified, uncomplicated; Z98.890 Other specified postprocedural states

== ENCOUNTER 2022-11-30 04:56 | Emergency (ER) | payer OTHER ==
[~2022-11-30] VITALS: Ht 152.4 cm; Wt 90.7 kg
[2022-11-30 05:00] VITALS: BP 157/78
[2022-11-30] MEDS ORDERED: MELOXICAM15 MG PO (07:51)
== END 2022-11-30 08:13 | disposition home or self-care (01) ==
LOC: ED 04:56
DX: M79.605 Pain in left leg (principal); M79.604 Pain in right leg; Z86.16 Personal history of COVID-19; E87.1 Hypo-osmolality and hyponatremia; F31.9 Bipolar disorder, unspecified; J44.9 Chronic obstructive pulmonary disease, unspecified; K21.9 Gastro-esophageal reflux disease without esophagitis; E87.8 Other disorders of electrolyte and fluid balance, not elsewhere classified; G62.9 Polyneuropathy, unspecified; N18.30 Chronic kidney disease, stage 3 unspecified; F17.200 Nicotine dependence, unspecified, uncomplicated; I12.9 Hypertensive chronic kidney disease with stage 1 through stage 4 chronic kidney disease, or unspecified chronic kidney disease; Z98.51 Tubal ligation status; Z98.890 Other specified postprocedural states

== ENCOUNTER → 2022-12-06 | Outpatient (CLI) | payer OTHER ==
[~2022-12-06] MED LIST changes: +MELOXICAM15 MG PO
== END | disposition home or self-care (01) ==
LOC: CT 11-23 14:00
PROVIDERS: ATTEND Internal Medicine
DX: J43.9 Emphysema, unspecified (principal); R91.8 Other nonspecific abnormal finding of lung field; I25.10 Atherosclerotic heart disease of native coronary artery without angina pectoris; K76.0 Fatty (change of) liver, not elsewhere classified; F17.210 Nicotine dependence, cigarettes, uncomplicated

== ENCOUNTER 2022-12-10 11:30 | Emergency (ER) | payer OTHER ==
[~2022-12-10] VITALS: Ht 157.4 cm; Wt 74.4 kg
[2022-12-10 11:35] VITALS: BP 130/92
[2022-12-10 12:26] LABS: HEMATOCRIT 46.2 % (37.0-47.0); MEAN CELL VOLUME 93.3 fl (81.0-99.0); MEAN CORPUSCULAR HGB 31.5 pg (27.0-31.0); MEAN CORPUSCULAR HGB CONC 33.8 g/dl (33.0-37.0); MEAN PLATELET VOLUME 9.3 fl (9.6-12.3); NUCLEATED RED BLOOD CELL 0.3 % (0.0-0.0); PLATELET COUNT AUTOMATED 165 10*3/uL (130-400); RED BLOOD COUNT 4.95 10*6/uL (4.10-5.10); RED CELL DISTRI WIDTH 14.9 % (0-14.5); WHITE BLOOD COUNT 12.8 10*3/uL (4.8-10.8)
[2022-12-10 12:27] LABS: MANUAL DIFF REFLEX YES
[2022-12-10 12:38] LABS: ACT PARTIAL THROMBO TIME 26.1 SECONDS (20.0-32.1); INTERNATIONAL NORM RATIO 1.1 (2.0-3.5)
[2022-12-10 12:48] LABS: ALKALINE PHOSPHATASE 97 U/L (46-116); BUN 8 mg/dl (9-23); CHLORIDE 92 mmol/L (98-107); POTASSIUM 3.8 mmol/L (3.4-5.1); SGPT/ALT 22 U/L (10-49); TOTAL PROTEIN 6.5 gm/dL (6.0-8.0)
[2022-12-10 12:55] LABS: OVALOCYTES FEW; PLATELET SUFFICIENCY NORMAL (NORMAL); POLYCHROMASIA SLIGHT; TOTAL CELLS COUNTED 100 #CELLS; TOXIC GRANULATION SLIGHT; VACUOLATION OF NEUTROPHILS SLIGHT
== END 2022-12-10 12:58 | disposition left against medical advice (07) ==
LOC: ED 11:30
PROVIDERS: Physician Assistant
DX: R06.02 Shortness of breath (principal); R05.9 Cough, unspecified; J44.9 Chronic obstructive pulmonary disease, unspecified; Z88.8 Allergy status to other drugs, medicaments and biological substances; Z79.899 Other long term (current) drug therapy; Z98.890 Other specified postprocedural states; Z98.51 Tubal ligation status; F17.200 Nicotine dependence, unspecified, uncomplicated

== ENCOUNTER 2023-05-04 11:18 | Emergency (ER) | payer OTHER ==
[~2023-05-04] VITALS: Ht 157.4 cm; Wt 68.0 kg
[2023-05-04 11:22] VITALS: BP 122/70
[2023-05-04] MEDS ORDERED: [UNRECOGNIZED DRUG - REMARK] (11:34)
[2023-05-04 11:52] LABS: BASO # 0.1 10*3/uL (0.0-0.1); BASO % 1.2 % (0.0-1.0); EOS # 0.6 10*3/uL (0.0-0.4); EOS % 4.9 % (1.0-4.0); LYMPH # 3.6 10*3/uL (1.3-4.4); MEAN CELL VOLUME 91.3 fl (81.0-99.0); MEAN CORPUSCULAR HGB 31.7 pg (27.0-31.0); MEAN CORPUSCULAR HGB CONC 34.8 g/dl (33.0-37.0); MEAN PLATELET VOLUME 8.1 fl (9.6-12.3); MONO # 0.7 10*3/uL (0.1-1.0); MONO % 6.1 % (3.0-9.0); NEUT # 6.8 10*3/uL (2.3-7.9); NEUT % 56.8 % (47.0-73.0); PLATELET COUNT AUTOMATED 282 10*3/uL (130-400); RED BLOOD COUNT 4.38 10*6/uL (4.10-5.10); RED CELL DISTRI WIDTH 12.8 % (0-14.5)
[2023-05-04 12:15] LABS: ALKALINE PHOSPHATASE 165 U/L (46-116); CHLORIDE 100 mmol/L (98-107); POTASSIUM 4.1 mmol/L (3.4-5.1); SGPT/ALT 11 U/L (10-49); TOTAL PROTEIN 5.9 gm/dL (6.0-8.0)
[2023-05-04 12:23] LABS: BUN < 5 mg/dl (9-23)
[2023-05-04 12:24] LABS: BILIRUBIN Negative (Negative); BLOOD Negative (Negative); CLARITY Clear (Clear); COLOR Yellow (Yellow); GLUCOSE Negative (Negative); KETONE Negative (Negative); LEUKO ESTERASE 1+ (Negative); NITRITE Negative (Negative); PH 6.5 (4.5-8.0); SPECIFIC GRAVITY <= 1.005 (1.001-1.030); UROBILINOGEN 0.2 E.U./dl (0.0-1.0)
[2023-05-04 12:39] LABS: BACTERIA 1+
== END 2023-05-04 14:25 | disposition home or self-care (01) ==
LOC: ED 11:18
PROVIDERS: Nurse Practitioner
DX: N39.0 Urinary tract infection, site not specified (principal); E87.1 Hypo-osmolality and hyponatremia; F17.210 Nicotine dependence, cigarettes, uncomplicated; Z88.8 Allergy status to other drugs, medicaments and biological substances; Z79.899 Other long term (current) drug therapy; Z98.890 Other specified postprocedural states; Z98.51 Tubal ligation status

== ENCOUNTER → 2023-05-21 | Outpatient (CLI) | payer OTHER ==
[~2023-05-21] MED LIST changes: +[UNRECOGNIZED DRUG - REMARK]
[2023-05-22 12:07] LABS: ANTI-DSDNA ANTIBODIES <1 IU/mL (0-9); ANTI-RNP ANTIBODIES <0.2 AI (0.0-0.9); ANTISCLERODERMA-70 AB <0.2 AI (0.0-0.9); CCP ANTIBODIES IGG/IGA 1 units (0-19); SJOGREN ANTI-SS-A <0.2 AI (0.0-0.9); SJOREN AB, ANTI-SS-B 1.1 AI (0.0-0.9)
== END | disposition home or self-care (01) ==
LOC: LAB 15:29
PROVIDERS: ATTEND Internal Medicine
DX: R76.8 Other specified abnormal immunological findings in serum (principal)

== ENCOUNTER → 2023-07-01 | Outpatient (CLI) | payer OTHER ==
[~2023-07-01] MED LIST changes: +ALAVERT10 M2 PO; +GABAPENTIN600 MG PO; +LIPITOR10 MG PO; +SEROQUEL200 MG PO; +VIIBRYD40 PO
== END | disposition home or self-care (01) ==
LOC: CARD 01:11
PROVIDERS: ATTEND Internal Medicine
DX: R07.9 Chest pain, unspecified (principal); R06.02 Shortness of breath

== ENCOUNTER → 2023-07-10 | Outpatient (CLI) | payer OTHER | END | disposition home or self-care (01) | LOC: CT 07-03 13:00 | PROVIDERS: ATTEND Internal Medicine | DX: I70.203 Unspecified atherosclerosis of native arteries of extremities, bilateral legs (principal) ==

== ENCOUNTER → 2023-08-29 | Outpatient (CLI) | payer OTHER | END | disposition home or self-care (01) | LOC: RAD 09:38 | PROVIDERS: ATTEND Internal Medicine | DX: J44.1 Chronic obstructive pulmonary disease with (acute) exacerbation (principal) ==

== ENCOUNTER 2023-10-16 16:28 | Emergency (ER) | payer OTHER ==
[~2023-10-16] VITALS: Ht 157.4 cm; Wt 69.4 kg
[~2023-10-16 16:28] MED LIST changes: +COZAAR50 M1 PO
[2023-10-16 16:30] VITALS: BP 117/80
[2023-10-16 17:12] LABS: BASO # 0.1 10*3/uL (0.0-0.1); EOS # 0.3 10*3/uL (0.0-0.4); EOS % 2.8 % (1.0-4.0); HEMATOCRIT 45.2 % (37.0-47.0); LYMPH # 4.9 10*3/uL (1.3-4.4); LYMPH % 40.5 % (27.0-41.0); MEAN CELL VOLUME 88.6 fl (81.0-99.0); MEAN CORPUSCULAR HGB CONC 32.7 g/dl (33.0-37.0); MONO # 0.7 10*3/uL (0.1-1.0); MONO % 5.4 % (3.0-9.0); NEUT % 49.9 % (47.0-73.0); PLATELET COUNT AUTOMATED 399 10*3/uL (130-400); RED CELL DISTRI WIDTH 12.9 % (0-14.5); WHITE BLOOD COUNT 12.1 10*3/uL (4.8-10.8)
[2023-10-16 17:27] LABS: BUN 8 mg/dl (9-23); CHLORIDE 91 mmol/L (98-107); POTASSIUM 3.9 mmol/L (3.4-5.1)
[2023-10-16] MEDS ORDERED: SODIUM CHLORIDE 0.9% 1,000 ML IV ONE (17:40)
[2023-10-16] MEDS ORDERED: SODIUM CHLORI1000 M5 MC (18:02)
== END 2023-10-16 18:10 | disposition home or self-care (01) ==
LOC: ED 16:28
PROVIDERS: Internal Medicine
DX: E87.1 Hypo-osmolality and hyponatremia (principal); R42 Dizziness and giddiness; F17.200 Nicotine dependence, unspecified, uncomplicated; Z88.8 Allergy status to other drugs, medicaments and biological substances; Z79.899 Other long term (current) drug therapy; Z98.890 Other specified postprocedural states; Z98.51 Tubal ligation status

== ENCOUNTER → 2023-11-11 | Outpatient (CLI) | payer OTHER ==
[~2023-11-11] MED LIST changes: +SODIUM CHLORI1000 M5 MC
[2023-11-11 11:53] LABS: BILIRUBIN Negative (Negative); BLOOD Negative (Negative); CLARITY Clear (Clear); COLOR Yellow (Yellow); GLUCOSE Negative (Negative); KETONE Negative (Negative); LEUKO ESTERASE Negative (Negative); NITRITE Negative (Negative); PH 5.5 (4.5-8.0); SPECIFIC GRAVITY <= 1.005 (1.001-1.030); UROBILINOGEN 0.2 E.U./dl (0.0-1.0)
[2023-11-11 12:00] LABS: EPITHELIAL CELLS 0-2; MUCOUS TRACE; RBC 0-2 rbc/hpf (0-2)
[2023-11-11 12:22] LABS: BUN 12 mg/dl (9-23); CHLORIDE 98 mmol/L (98-107); POTASSIUM 4.2 mmol/L (3.4-5.1)
[2023-11-11 12:25] LABS: BUN 11 mg/dl (9-23); CHLORIDE 97 mmol/L (98-107); POTASSIUM 4.2 mmol/L (3.4-5.1)
[2023-11-11 12:28] LABS: VITAMIN D, 25-HYDROXY 21.5 ng/mL (30-100)
== END ==
LOC: LAB 11:18
PROVIDERS: Internal Medicine; ATTEND Internal Medicine Nephrology
DX: E87.1 Hypo-osmolality and hyponatremia (principal); E55.9 Vitamin D deficiency, unspecified; E53.8 Deficiency of other specified B group vitamins; G62.9 Polyneuropathy, unspecified

== ENCOUNTER 2024-01-09 21:00 | Emergency (ER) | payer OTHER ==
[~2024-01-09] VITALS: Ht 157.4 cm; Wt 74.2 kg
[2024-01-09 21:28] LABS: HEMATOCRIT 40.6 % (37.0-47.0); MEAN CELL VOLUME 86.6 fl (81.0-99.0); MEAN CORPUSCULAR HGB 29.4 pg (27.0-31.0); MEAN PLATELET VOLUME 8.7 fl (9.6-12.3); PLATELET COUNT AUTOMATED 299 10*3/uL (130-400); RED BLOOD COUNT 4.69 10*6/uL (4.10-5.10); RED CELL DISTRI WIDTH 13.1 % (0-14.5); WHITE BLOOD COUNT 17.5 10*3/uL (4.8-10.8)
[2024-01-09 21:34] LABS: MANUAL DIFF REFLEX YES
[2024-01-09 21:44] LABS: ACT PARTIAL THROMBO TIME 28.6 SECONDS (20.0-32.1)
[2024-01-09 21:46] LABS: ALKALINE PHOSPHATASE 125 U/L (46-116); CHLORIDE 96 mmol/L (98-107); POTASSIUM 3.4 mmol/L (3.4-5.1); TOTAL PROTEIN 6.8 gm/dL (6.0-8.0)
[2024-01-09 21:49] LABS: BUN < 5 mg/dl (9-23); SGPT/ALT < 7 U/L (5-49)
[2024-01-09 21:53] LABS: ATYPICAL LYMPHS 2 % (0-0); BASOPHILS 1 % (0-1); PLATELET SUFFICIENCY NORMAL (NORMAL); TOTAL CELLS COUNTED 100 #CELLS
[2024-01-09 21:54] LABS: BURR CELLS FEW; OVALOCYTES FEW
[2024-01-09 22:52] LABS: BILIRUBIN Negative (Negative); BLOOD Negative (Negative); CLARITY Clear (Clear); COLOR Yellow (Yellow); GLUCOSE Negative (Negative); KETONE Negative (Negative); LEUKO ESTERASE Trace (Negative); NITRITE Negative (Negative); PH 6.5 (4.5-8.0); SPECIFIC GRAVITY <= 1.005 (1.001-1.030); UROBILINOGEN 0.2 E.U./dl (0.0-1.0)
[2024-01-10 00:02] VITALS: BP 128/75
== END 2024-01-10 00:03 | disposition home or self-care (01) ==
LOC: ED 21:00
PROVIDERS: Internal Medicine
DX: R20.2 Paresthesia of skin (principal); R07.89 Other chest pain; T43.595A Adverse effect of other antipsychotics and neuroleptics, initial encounter; I10 Essential (primary) hypertension; F41.9 Anxiety disorder, unspecified; J44.9 Chronic obstructive pulmonary disease, unspecified; F31.9 Bipolar disorder, unspecified; F17.200 Nicotine dependence, unspecified, uncomplicated; F12.90 Cannabis use, unspecified, uncomplicated; Z88.8 Allergy status to other drugs, medicaments and biological substances; Z98.890 Other specified postprocedural states; Z98.51 Tubal ligation status; Y92.89 Other specified places as the place of occurrence of the external cause

== ENCOUNTER 2024-02-10 21:01 | Emergency (ER) | payer OTHER ==
[~2024-02-10] VITALS: Ht 157.4 cm; Wt 77.1 kg
[2024-02-10 21:25] LABS: HEMATOCRIT 45.6 % (37.0-47.0); MEAN CELL VOLUME 99.6 fl (81.0-99.0); MEAN CORPUSCULAR HGB 29.7 pg (27.0-31.0); MEAN CORPUSCULAR HGB CONC 29.8 g/dl (33.0-37.0); MEAN PLATELET VOLUME 10.4 fl (9.6-12.3); NUCLEATED RED BLOOD CELL 0.1 10*3/uL (0.0-0.0); NUCLEATED RED BLOOD CELL 0.4 % (0.0-0.0); PLATELET COUNT AUTOMATED 233 10*3/uL (130-400); RED BLOOD COUNT 4.58 10*6/uL (4.10-5.10); RED CELL DISTRI WIDTH 13.2 % (0-14.5); WHITE BLOOD COUNT 28.9 10*3/uL (4.8-10.8)
[2024-02-10 21:26] LABS: MANUAL DIFF REFLEX YES
[2024-02-10] MEDS ORDERED: EPINEPHrine Hydrochloride 1 MG in SODIUM CHLORIDE 0.9% 250 ML IV ONE (21:30)
[2024-02-10 22:10] LABS: PLATELET SUFFICIENCY NORMAL (NORMAL); TOTAL CELLS COUNTED 100 #CELLS
[2024-02-11] MEDS ORDERED: SODIUM BICARBONATE 50 MEQ/50 ML SYR IV ONE (15:40)
[2024-02-11] MEDS ORDERED: EPINEPHrine Hydrochloride 1 MG/10 ML SYR IV ONE (15:40)
== END 2024-02-10 21:18 ==
LOC: ED 21:01
PROVIDERS: Student in an Organized Health Care Education/Training Program
DX: I46.9 Cardiac arrest, cause unspecified (principal); J44.9 Chronic obstructive pulmonary disease, unspecified; F31.9 Bipolar disorder, unspecified; I25.10 Atherosclerotic heart disease of native coronary artery without angina pectoris; I12.9 Hypertensive chronic kidney disease with stage 1 through stage 4 chronic kidney disease, or unspecified chronic kidney disease; N18.31 Chronic kidney disease, stage 3a; F17.200 Nicotine dependence, unspecified, uncomplicated; Z88.8 Allergy status to other drugs, medicaments and biological substances; Z88.1 Allergy status to other antibiotic agents; Z79.899 Other long term (current) drug therapy; K21.9 Gastro-esophageal reflux disease without esophagitis; F20.0 Paranoid schizophrenia; Z98.890 Other specified postprocedural states; Z98.51 Tubal ligation status